=== PATIENT | female | born 1990 | race Caucasian/White ===

== ENCOUNTER 2019-04-12 13:20 | Inpatient (IN) | payer OTHER ==
--- NOTE | 2019-04-12 13:38 | PDOC ---
History of Present Illness <Rae Dela Cruz - Last Filed: 04/12/19 14:41> - General History Source: Patient Exam Limitations: No Limitations - History of Present Illness Initial Comments: 04/12/19 15:08 29 yo F w/ a h/o alcoholic pancreatitis, anxiety, comes in c/o an attack of her pancreatitis since this am. She c/o sudden onset of a burning epigastric pain which radiates to the back and is associated with nausea. It feels similar to her pancreatitis episodes. She has had 2 episodes in the past, and was admitted for both: once at [facility], once in [place]. No fever/chills, no vomiting, no diarrhea, no urinary symptoms, no vaginal symptoms. She states that she abused alcohol for more than 10 years, went through detox when she was admitted for her last pancreatitis attack and had been sober for 3 months, until she had a beer last night while out with her friends (which she thinks triggered her attack) 04/12/19 15:14 <MadhuLauren menon - Last Filed: 04/12/19 18:51> - General Chief Complaint: Pain Stated Complaint: PAIN Time Seen by Provider: 04/12/19 13:38 Past History <Rae Dela Cruz - Last Filed: 04/12/19 14:41> - Past Medical History COPD: No GI Disorders: Yes (GB stones) Liver Disease: Yes Other medical history: PANCREATITIS - Suicide/Smoking/Psychosocial Hx Smoking History: Never smoked <Lauren Leung - Last Filed: 04/12/19 18:51> - Past Medical History Allergies/Adverse Reactions: Allergies Allergy/AdvReac Type Severity Reaction Status Date / Time amoxicillin Allergy Verified 04/12/19 13:24 prochlorperazine Allergy Verified 04/12/19 13:24 [From Compazine] Home Medications: Ambulatory Orders Omeprazole Magnesium [Acid Blast Furnace Supervisor] 20 mg PO DAILY 04/12/19 Review of Systems - Review of Systems Able to Perform ROS?: Yes Constitutional: Yes: Malaise. No: Chills, Fever, Night Sweats HEENTM: No: Eye Pain, Recent change in vision, Throat Pain Respiratory: No: Cough, Shortness of Breath Cardiac (ROS): No: Chest Pain, Palpitations, Chest Tightness ABD/GI: Yes: Nausea, Abdominal cramping. No: Diarrhea, Vomiting : No: Dysuria, Hematuria Musculoskeletal: Yes: Back Pain Integumentary: No: Rash Neurological: No: Headache, Numbness, Dizziness Psychiatric: No: Change in Appetite Endocrine: No: Unexplained Weight Loss <Lauren Leung - Last Filed: 04/12/19 18:51> *Physical Exam - Vital Signs Last Vital Signs Temp Pulse Resp BP Pulse Ox 97.7 F 116 H 18 128/88 99 04/12/19 13:21 04/12/19 13:21 04/12/19 13:21 04/12/19 13:21 04/12/19 13:21 <Rae Dela Cruz - Last Filed: 04/12/19 14:41> - Vital Signs Last Vital Signs Temp Pulse Resp BP Pulse Ox 97.7 F 116 H 18 128/88 99 04/12/19 13:21 04/12/19 13:21 04/12/19 13:21 04/12/19 13:21 04/12/19 13:21 - Physical Exam General Appearance: Yes: Nourished, Thin. No: Apparent Distress HEENT: positive: ÓSCAR, Normal ENT Inspection, Normal Voice. negative: Pale Conjunctivae, Scleral Icterus (R), Scleral Icterus (L) Neck: positive: Supple. negative: Decreased range of motion, Tender midline Respiratory/Chest: positive: Lungs Clear, Normal Breath Sounds. negative: Respiratory Distress, Accessory Muscle Use Cardiovascular: positive: Regular Rhythm, Regular Rate Gastrointestinal/Abdominal: positive: Normal Bowel Sounds, Tender (epigastric, RUQ/LUQ tenderness, also mild tenderness in lower abdomen, no tenderness at McBurney's point, Unable to assess lainez's sign due to pain.), Soft, Rebound Musculoskeletal: positive: Normal Inspection. negative: CVA Tenderness, Decreased Range of Motion Extremity: positive: Normal Capillary Refill, Normal Inspection, Normal Range of Motion. negative: Tender, Pedal Edema Integumentary: positive: Normal Color, Dry. negative: Jaundice, Rash Neurologic: positive: Fully Oriented, Alert, Normal Mood/Affect <Lauren Leung - Last Filed: 04/12/19 18:51> ED Treatment Course - LABORATORY CBC & Chemistry Diagram: 04/12/19 13:40 04/12/19 13:40 - ADDITIONAL ORDERS Additional order review: Laboratory Results 04/12/19 04/12/19 13:41 13:40 PT with INR 11.10 INR 0.94 Serum , Qual Negative 04/12/19 13:40 RBC 3.67 MCV 99.9 H MCHC 33.6 RDW 14.7 MPV 7.4 L Neutrophils % 70.5 Lymphocytes % 19.7 Monocytes % 7.6 Eosinophils % 1.2 Basophils % 1.0 - Medications Given in the ED: ED Medications Discontinued Medications Generic Name Dose Route Start Last Admin Trade Name Sasha PRN Reason Stop Dose Admin Ondansetron HCl 4 mg 04/12/19 13:50 04/12/19 14:03 Zofran Injection IVPUSH 04/12/19 13:51 4 mg ONCE ONE Administration Sodium Chloride 1,000 ml 04/12/19 13:50 04/12/19 14:02 Normal Saline - IV 04/12/19 13:51 1,000 ml ONCE ONE Administration <Rae Dela Cruz - Last Filed: 04/12/19 14:41> - LABORATORY CBC & Chemistry Diagram: 04/12/19 13:40 04/12/19 13:40 <Lauren Leung - Last Filed: 04/12/19 18:51> Medical Decision Making - Medical Decision Making 04/12/19 14:12 The patient was seen and evaluated in conjunction with midlevel provider under my direct supervision, ancillary studies were reviewed. I agree with the plan as outlined ANAYELI Leung. HPI, workup/dispo as outlined. VS reviewed, +tachycardia, likely from pain prior h/o pancreatitis, from ETOH drank beer last night labs and lytes remarkable for pancreatitis. IVF, hydration, antiemetics, analgesia, bowel rest ultrasound admit for pancreatitis, medical management 04/12/19 14:41 04/12/19 14:43 <Rae Dela Cruz - Last Filed: 04/12/19 14:41> - Medical Decision Making 04/12/19 14:30 29 yo F w/ a h/o pancreatitis comes in c/o epigastric pain radiating to the back , likely pancreatitis. WIll do a RUQ sono R/O stones, will line and lab, check urine, will give pain meds, IV fluids, NPO. 06/29/19 15:17 Lipase high, will admit for pancreatitis, pt NPO, morphine ordered for pain, IV fluids ordered. Will admit for GI rest, further eval. I spoke to admitting [facility] resident about the admission <Lauren Leung - Last Filed: 04/12/19 18:51> *DC/Admit/Observation/Transfer <Rae Dela Cruz - Last Filed: 04/12/19 14:41> <Lauren Leung - Last Filed: 04/12/19 18:51> Diagnosis at time of Disposition: Pancreatitis Qualifiers: Chronicity: acute Pancreatitis type: alcohol induced Acute pancreatitis complication: unspecified Qualified Code(s): K85.20 - Alcohol induced acute pancreatitis without necrosis or infection - Discharge Dispostion Condition at time of disposition: Stable
[2019-04-12 13:50] LABS: EOS % 1.2 % (0-4.5); HEMATOCRIT 36.7 % (32.4-45.2); HEMOGLOBIN 12.3 GM/dL (10.7-15.3); LYMPH % 19.7 % (8-40); MCH 33.6 pg (25.7-33.7); MCHC 33.6 g/dl (32.0-36.0); MEAN CELL VOLUME 99.9 fl (80-96); MEAN PLT VOLUME 7.4 fl (7.5-11.1); MONO % 7.6 % (3.8-10.2); NEUT % 70.5 % (42.8-82.8); RBC 3.67 M/mm3 (3.60-5.2); RDW 14.7 % (11.6-15.6); WHITE BLOOD COUNT 9.7 K/mm3 (4.0-10.0)
[2019-04-12] MEDS ORDERED: FAMOTIDINE 20 MG/50 ML IVPB 20 MG/50 ML MG IVPB ONE ×2 (13:50→13:52)
[2019-04-12] MEDS ORDERED: SODIUM CHLORIDE 0.9% 500 ML INFUS.BAG IV ONE ×2 (13:50→14:45)
[2019-04-12] MEDS ORDERED: ONDANSETRON 4 MG/2 ML VIAL IVPUSH ONE (13:50)
[2019-04-12] MEDS ORDERED: ACETAMINOPHEN 1000 MG/100 ML VIAL (NON FORMULARY) IVPB ONE (13:50)
[2019-04-12] MEDS ORDERED: ONDANSETRON 4 MG/2 ML VIAL ONE (13:52)
[2019-04-12] MEDS ORDERED: ACETAMINOPHEN INJECTION 100 ML IVPB ONE (13:52)
[2019-04-12 13:58] LABS: PLATELET COUNT 347 K/MM3 (134-434)
[2019-04-12 14:02] LABS: INR 0.94 (0.83-1.09); PROTHROMBIN TIME (PATIENT) 11.1 SEC (9.7-13.0)
[2019-04-12 14:13] LABS: ALBUMIN 4.2 g/dl (3.4-5.0); ALK PHOS 60 U/L (45-117); ANION GAP 8 MMOL/L (8-16); BILIRUBIN,TOTAL 0.3 mg/dL (0.2-1); BLOOD UREA NITROGEN 6.1 mg/dL (7-18); CALCIUM 10.1 mg/dL (8.5-10.1); CHLORIDE 104 mmol/L (98-107); CO2 25 mmol/L (21-32); CREATININE 0.5 mg/dL (0.55-1.3); GLUCOSE,RANDOM 104 mg/dL (74-106); LIPASE 4338 U/L (73-393); POTASSIUM 4.6 mmol/L (3.5-5.1); SGOT/AST 62 U/L (15-37); SGPT/ALT 55 U/L (13-61); SODIUM 137 mmol/L (136-145); TOT PROT 8.2 g/dl (6.4-8.2)
[2019-04-12] MEDS ORDERED: morphine CARPU-JECT 4 MG/1 ML DISP.SYRIN IVPUSH ONE (14:45)
[2019-04-12] MEDS ORDERED: morphine SULFATE 4 MG/ML VIAL ONE (14:49)
--- NOTE | 2019-04-12 15:11 | HP ---
CHIEF COMPLAINT: Abdominal pain PCP:Ari Mariscal HISTORY OF PRESENT ILLNESS: 29y/o F w pmh of ETOH abuse, anxiety, pancreatitis, gastric ulcer, kidney stones presented to the ED w one day hx of abdominal pain started last night. It was very mild 2/10 worsening this am. This am it was 7/10 radiating to the back b/l ass. w nausea and no vomiting. Pt has 2 previous episodes of pancreatitis. Last one 2 mths ago. Pt endorses that she drank 2 beers last pm and a cup of wine two days ago. Pt have a previous hx of ETOH abuse since the age of 14 w a 1L of wiskey daily. She was Rx at [facility] for detox in february. Pt reports light headedness and dizzyness but denies recent cold, sore throat, chest pain, palpitations. She reports buring sensation at the end of urination. ER course was notable for: (1)cbc/cmp, lipase 4300, (2)- NS bolus (3) zofran, morphine Recent Travel: denies PAST MEDICAL HISTORY: as per HPI PAST SURGICAL HISTORY: tonsillectomy Social History: Smokin/2 ppd since 16 y/o. 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 Drugs: marijuana 1-2 X/yr, ecstacy, and mushrooms when teenager Family History: F- candiadis diffuse M- BRCA, DM Brother- lymphoma at 4y/ o. Aunt- Colon [place] Allergies- amoxicillin Allergy (Verified 04/12/19 13:24) Hives prochlorperazine [From Compazine] Allergy (Verified 04/12/19 13:24) Palpitations , itchiness HOME MEDICATIONS: Home Medications Medication Instructions Recorded Omeprazole Magnesium [Acid Engraved Roller Inspector] 20 mg PO DAILY 04/12/19 REVIEW OF SYSTEMS CONSTITUTIONAL: Absent: fever, chills, diaphoresis, generalized weakness, malaise, loss of appetite, weight change HEENT: Absent: rhinorrhea, nasal congestion, throat pain, throat swelling, difficulty swallowing, mouth swelling, ear pain, eye pain, visual changes CARDIOVASCULAR: Absent: chest pain, syncope, palpitations, irregular heart rate, lightheadedness , peripheral edema RESPIRATORY: Absent: cough, shortness of breath, dyspnea with exertion, orthopnea, wheezing, stridor, hemoptysis GASTROINTESTINAL: Absent: abdominal pain, abdominal distension, nausea, vomiting, diarrhea, constipation, melena, hematochezia GENITOURINARY: Absent: dysuria, frequency, urgency, hesitancy, hematuria, flank pain, genital pain MUSCULOSKELETAL: Absent: myalgia, arthralgia, joint swelling, back pain, neck pain SKIN: Absent: rash, itching, pallor HEMATOLOGIC/IMMUNOLOGIC: Absent: easy bleeding, easy bruising, lymphadenopathy, frequent infections ENDOCRINE: Absent: unexplained weight gain, unexplained weight loss, heat intolerance, cold intolerance NEUROLOGIC: Absent: headache, focal weakness or paresthesias, dizziness, unsteady gait, seizure, mental status changes, bladder or bowel incontinence PSYCHIATRIC: Absent: anxiety, depression, suicidal or homicidal ideation, hallucinations. PHYSICAL EXAMINATION Vital Signs - 24 hr 04/12/19 13:21 Temperature 97.7 F Pulse Rate 116 H Respiratory 18 Rate Blood Pressure 128/88 O2 Sat by Pulse 99 Oximetry (%) GENERAL: Awake, alert, and fully oriented, in no acute distress. HEAD: Normal with no signs of trauma. EYES: Pupils equal, round and reactive to light, sclera anicteric, conjunctiva clear. EARS, NOSE, THROAT: Ears normal, nares patent, oropharynx clear without exudates. Moist mucous membranes.lower chin stitches NECK: supple LUNGS: Breath sounds equal, clear to auscultation bilaterally. No wheezes, and no crackles. No accessory muscle use. HEART: sinus tachy , normal S1 and S2 without murmur, rub or gallop. ABDOMEN: Soft, diffuse tenderness , RUQ tenderness , RLL tendernes , epigastric tenderness , mild distension , normoactive bowel sounds, MUSCULOSKELETAL: Normal range of motion at all joints. No bony deformities or tenderness. No CVA tenderness. UPPER EXTREMITIES: 2+ pulses, warm, well-perfused. No cyanosis. No clubbing. No peripheral edema. LOWER EXTREMITIES: 2+ pulses, warm, well-perfused. No calf tenderness. No peripheral edema. NEUROLOGICAL: Cranial nerves II-XII intact. Normal speech. PSYCHIATRIC: Cooperative. Good eye contact. SKIN: Warm, dry, normal turgor, Laboratory Results - last 24 hr 04/12/19 04/12/19 04/12/19 13:40 13:40 13:40 WBC 9.7 RBC 3.67 Hgb 12.3 Hct 36.7 MCV 99.9 H MCH 33.6 MCHC 33.6 RDW 14.7 Plt Count 347 MPV 7.4 L Absolute Neuts (auto) 6.8 Neutrophils % 70.5 Lymphocytes % 19.7 Monocytes % 7.6 Eosinophils % 1.2 Basophils % 1.0 Nucleated RBC % 0 PT with INR 11.10 INR 0.94 Sodium 137 Potassium 4.6 Chloride 104 Carbon Dioxide 25 Anion Gap 8 BUN 6.1 L Creatinine 0.5 L Est GFR (CKD-EPI)AfAm 152.65 Est GFR (CKD-EPI)NonAf 131.71 Random Glucose 104 Calcium 10.1 Total Bilirubin 0.3 AST 62 H ALT 55 Alkaline Phosphatase 60 Total Protein 8.2 Albumin 4.2 Lipase 4338 H Serum , Qual 04/12/19 13:41 WBC RBC Hgb Hct MCV MCH MCHC RDW Plt Count MPV Absolute Neuts (auto) Neutrophils % Lymphocytes % Monocytes % Eosinophils % Basophils % Nucleated RBC % PT with INR INR Sodium Potassium Chloride Carbon Dioxide Anion Gap BUN Creatinine Est GFR (CKD-EPI)AfAm Est GFR (CKD-EPI)NonAf Random Glucose Calcium Total Bilirubin AST ALT Alkaline Phosphatase Total Protein Albumin Lipase Serum , Qual Negative CBC, BMP 04/12/19 13:40 04/12/19 13:40 EKG NSR QTC 447 ASSESSMENT/PLAN: 29y/o F w pmh of ETOH abuse, anxiety, pancreatitis, gastric ulcer, kidney stones presented to the ED w one day hx of abdominal pain started last night. It was very mild 2/10 worsening this am. This am it was 7/10 radiating to the back b/l ass. w nausea and no vomiting, admitted to [facility] for acute pancreatitis . # Acute pancreatitis * epigastric abdominal pain radioate to her back , with levated lipase 4300 , f.u US abdomen * BHCG ordered * NPO except meds * IV fluids RL bolus and Maintinace 200 CC/hr * Zofran for nausea * Morphine 2 mg Q 4hr for pain * lipid panel * alcohol abstinence * PPI 20 Po daily * EKG * UA and urine toxicology # Mild OLAF likley pre renal will repeat lab after hydration # H.O kidney stone * F.U US no hematuria # FEN * RL : 1 L bolus and 200 CC/hr maintinace * E: monitor * NPO # Proph * Dvts : SCDS * GI: PPI 20 po daily # Dispo : M/S # Code status : Full code Visit type - Emergency Visit Emergency Visit: Yes ED Registration Date: 04/12/19 Care time: The patient presented to the Emergency Department on the above date and was hospitalized for further evaluation of their emergent condition. - New Patient This patient is new to me today: Yes Date on this admission: 04/12/19 - Critical Care Critical Care patient: No
[2019-04-12 16:02] LABS: PH,URINE 5.5 (5.0-8.0); URINE APPEARANCE CLEAR; URINE BILIRUBIN NEGATIVE (NEGATIVE); URINE COLOR YELLOW; URINE GLUCOSE (UA) NEGATIVE (NEGATIVE); URINE KETONE NEGATIVE (NEGATIVE); URINE LEUK ESTERASE 1+ (NEGATIVE); URINE NITRITE NEGATIVE (NEGATIVE); URINE PROTEIN NEGATIVE (NEGATIVE); URINE UROBILINOGEN 0.2 mg/dL (0.2-1.0)
[2019-04-12] MEDS ORDERED: LACTATED RINGERS SOLUTION 1,000 ML IV STA (16:17)
[2019-04-12] MEDS ORDERED: ONDANSETRON 4 MG/2 ML VIAL IVPUSH PRN (16:21)
[2019-04-12 16:31] LABS: COCAINE, UR NEGATIVE ng/ml (CUTOFF=300); METHADONE, UR NEGATIVE ng/ml (CUTOFF=300); PHENCYCLIDINE,URINE NEGATIVE ng/ml (CUTOFF=25); URINE BARBITURATES NEGATIVE ng/ml (CUTOFF=200); URINE BENZODIAZEPINES NEGATIVE ng/ml (CUTOFF=200)
[2019-04-12 16:37] LABS: OPIATES, URI POSITIVE ng/ml (CUTOFF=300); URINE AMPHETAMINES POSITIVE ng/ml (CUTOFF=500)
--- NOTE | 2019-04-12 16:52 | PN ---
Teaching Attending Note Name of Resident: Patrick Vegas ATTENDING PHYSICIAN STATEMENT I saw and evaluated the patient. I reviewed the resident's note and discussed the case with the resident. I agree with the resident's findings and plan as documented. SUBJECTIVE: This is a 29 year old woman with a history of PUD, kidney stones, alcohol abuse, pancreatitis who comes to the ED complaining of abdominal pain since last night. She reports that she had 2 beers yesterday and a glass of wine 2 days ago. The pain started in the epigastric area last night. She was able to sleep, but after eating today, it worsened. It radiates to her back and is associated with nausea. She denies fever, hematemesis, melena, rectal bleeding. Her last episode of pancreatitis was ~3 months ago, and she says she was told that it was caused by stress. OBJECTIVE: Vital Signs Period Temp Pulse Resp BP Sys/Keller Pulse Ox Last 24 Hr 97.7 F 89-116 16-18 120-128/78-88 98-99 HEART: S1S2, RRR LUNGS: Clear ABDOMEN: Soft, non-distended, (+) diffuse tenderness, normal BS EXTREMITIES: No edema Laboratory Tests 04/12/19 04/12/19 04/12/19 13:40 13:40 13:40 WBC 9.7 RBC 3.67 Hgb 12.3 Hct 36.7 MCV 99.9 H MCH 33.6 MCHC 33.6 RDW 14.7 Plt Count 347 MPV 7.4 L Absolute Neuts (auto) 6.8 Neutrophils % 70.5 Lymphocytes % 19.7 Monocytes % 7.6 Eosinophils % 1.2 Basophils % 1.0 Nucleated RBC % 0 PT with INR 11.10 INR 0.94 Sodium 137 Potassium 4.6 Chloride 104 Carbon Dioxide 25 Anion Gap 8 BUN 6.1 L Creatinine 0.5 L Est GFR (CKD-EPI)AfAm 152.65 Est GFR (CKD-EPI)NonAf 131.71 Random Glucose 104 Calcium 10.1 Total Bilirubin 0.3 AST 62 H ALT 55 Alkaline Phosphatase 60 Total Protein 8.2 Albumin 4.2 Lipase 4338 H Serum , Qual Urine Color Urine Appearance Urine pH Ur Specific Robbins Urine Protein Urine Glucose (UA) Urine Ketones Urine Blood Urine Nitrite Urine Bilirubin Urine Urobilinogen Ur Leukocyte Esterase Opiates Screen Methadone Screen Barbiturate Screen Phencyclidine Screen Ur Amphetamines Screen MDMA (Ecstasy) Screen Benzodiazepines Screen Cocaine Screen U Marijuana (THC) Screen 04/12/19 04/12/19 04/12/19 13:41 15:00 15:50 WBC RBC Hgb Hct MCV MCH MCHC RDW Plt Count MPV Absolute Neuts (auto) Neutrophils % Lymphocytes % Monocytes % Eosinophils % Basophils % Nucleated RBC % PT with INR INR Sodium Potassium Chloride Carbon Dioxide Anion Gap BUN Creatinine Est GFR (CKD-EPI)AfAm Est GFR (CKD-EPI)NonAf Random Glucose Calcium Total Bilirubin AST ALT Alkaline Phosphatase Total Protein Albumin Lipase Serum , Qual Negative Urine Color Yellow Urine Appearance Clear Urine pH 5.5 Ur Specific Robbins 1.005 L Urine Protein Negative Urine Glucose (UA) Negative Urine Ketones Negative Urine Blood 2+ H Urine Nitrite Negative Urine Bilirubin Negative Urine Urobilinogen 0.2 Ur Leukocyte Esterase 1+ H Opiates Screen Positive A* Methadone Screen Negative Barbiturate Screen Negative Phencyclidine Screen Negative Ur Amphetamines Screen Positive A* MDMA (Ecstasy) Screen Negative Benzodiazepines Screen Negative Cocaine Screen Negative U Marijuana (THC) Screen Negative Home Medications Medication Instructions Recorded Omeprazole Magnesium [Acid Choir Singer] 20 mg PO DAILY 04/12/19 ASSESSMENT AND PLAN: This is a 29 year old woman with a history of PUD, kidney stones, alcohol abuse , pancreatitis who presented to the ED with abdominal pain. 1. Acute pancreatitis, recurrent, likely secondary to alcohol - NPO - IV fluid - Pain control - Zofran as needed for mausea - Check RUQ US, triglycerides - Discussed avoidance of alcohol 2. PUD - Continue Prilosec 3. Alcohol abuse - Patient reports being sober for several months after detox until this week - Urine positive for opiates and amphetamines, but she denies using any drugs other than occasional marijuana - Watch for withdrawal
[2019-04-12] MEDS: MORPHINE SULFATE 2 MG/ML VIAL IVPUSH PRN ×2 (19:19→23:20)
[2019-04-12] MEDS: LACTATED RINGERS SOLUTION 1,000 ML IV SCH (19:19)
[2019-04-12] MEDS ORDERED: KETOROLAC TROMETHAMINE 15 MG/ML VIAL IVPUSH ONE (20:47)
[2019-04-13] MEDS: LACTATED RINGERS SOLUTION 1,000 ML IV SCH ×5 (00:20→22:01)
[2019-04-13] MEDS: MORPHINE SULFATE 2 MG/ML VIAL IVPUSH PRN ×4 (03:40→20:36)
[2019-04-13 08:30] LABS: BASO % 0.9 % (0-2.0); EOS % 3.5 % (0-4.5); HEMATOCRIT 30.1 % (32.4-45.2); HEMOGLOBIN 10.1 GM/dL (10.7-15.3); LYMPH % 35.1 % (8-40); MCH 33.7 pg (25.7-33.7); MCHC 33.5 g/dl (32.0-36.0); MEAN CELL VOLUME 100.8 fl (80-96); MEAN PLT VOLUME 8.1 fl (7.5-11.1); MONO % 9.5 % (3.8-10.2); RBC 2.98 M/mm3 (3.60-5.2); RDW 14.3 % (11.6-15.6); WHITE BLOOD COUNT 4.7 K/mm3 (4.0-10.0)
[2019-04-13 08:43] LABS: ACTIVATED PTT 29.6 SECONDS (25.2-36.5)
[2019-04-13 08:44] LABS: INR 0.97 (0.83-1.09); PROTHROMBIN TIME (PATIENT) 11.5 SEC (9.7-13.0)
[2019-04-13 08:48] LABS: ALBUMIN 2.9 g/dl (3.4-5.0); BILIRUBIN,TOTAL 0.6 mg/dL (0.2-1); CALCIUM 9.1 mg/dL (8.5-10.1); CREATININE 0.4 mg/dL (0.55-1.3); MAGNESIUM 1.8 mg/dL (1.8-2.4); PHOSPHOROUS 4.6 mg/dL (2.5-4.9); TOT PROT 5.7 g/dl (6.4-8.2)
[2019-04-13 09:20] LABS: PLATELET COUNT 244 K/MM3 (134-434)
--- NOTE | 2019-04-13 13:48 | PN ---
Physical Exam: SUBJECTIVE: Patient seen and examined. She says abdominal pain is less severe. She denies nausea and says she feels hungry. She reports having a panic attack last night. OBJECTIVE: Vital Signs Period Temp Pulse Resp BP Sys/Keller Pulse Ox Last 24 Hr 97.8 F-98.6 F 62-95 16-20 112-125/61-78 97-98 GENERAL: The patient is awake, alert, and fully oriented, in no acute distress. LUNGS: Breath sounds equal, clear to auscultation bilaterally, no wheezes, no crackles, no accessory muscle use. HEART: Regular rate and rhythm, S1, S2 without murmur, rub or gallop. ABDOMEN: Soft, (+) mild diffuse tenderness, nondistended, normoactive bowel sounds, no guarding, no rebound, no hepatosplenomegaly, no masses. EXTREMITIES: 2+ pulses, warm, well-perfused, no edema. Laboratory Results - last 24 hr 04/12/19 04/12/19 04/12/19 13:40 13:40 13:40 WBC 9.7 RBC 3.67 Hgb 12.3 Hct 36.7 MCV 99.9 H MCH 33.6 MCHC 33.6 RDW 14.7 Plt Count 347 MPV 7.4 L Absolute Neuts (auto) 6.8 Neutrophils % 70.5 Lymphocytes % 19.7 Monocytes % 7.6 Eosinophils % 1.2 Basophils % 1.0 Nucleated RBC % 0 PT with INR 11.10 INR 0.94 PTT (Actin FS) Sodium 137 Potassium 4.6 Chloride 104 Carbon Dioxide 25 Anion Gap 8 BUN 6.1 L Creatinine 0.5 L Est GFR (CKD-EPI)AfAm 152.65 Est GFR (CKD-EPI)NonAf 131.71 Random Glucose 104 Calcium 10.1 Phosphorus Magnesium Total Bilirubin 0.3 GGT AST 62 H ALT 55 Alkaline Phosphatase 60 Total Protein 8.2 Albumin 4.2 Triglycerides Cholesterol Total LDL Cholesterol HDL Cholesterol Total Amylase Lipase 4338 H Beta HCG, Quant < 1.0 Serum , Qual Urine Color Urine Appearance Urine pH Ur Specific [place] Urine Protein Urine Glucose (UA) Urine Ketones Urine Blood Urine Nitrite Urine Bilirubin Urine Urobilinogen Ur Leukocyte Esterase Opiates Screen Methadone Screen Barbiturate Screen Phencyclidine Screen Ur Amphetamines Screen MDMA (Ecstasy) Screen Benzodiazepines Screen Cocaine Screen U Marijuana (THC) Screen 04/12/19 04/12/19 04/12/19 13:41 15:00 15:50 WBC RBC Hgb Hct MCV MCH MCHC RDW Plt Count MPV Absolute Neuts (auto) Neutrophils % Lymphocytes % Monocytes % Eosinophils % Basophils % Nucleated RBC % PT with INR INR PTT (Actin FS) Sodium Potassium Chloride Carbon Dioxide Anion Gap BUN Creatinine Est GFR (CKD-EPI)AfAm Est GFR (CKD-EPI)NonAf Random Glucose Calcium Phosphorus Magnesium Total Bilirubin GGT AST ALT Alkaline Phosphatase Total Protein Albumin Triglycerides Cholesterol Total LDL Cholesterol HDL Cholesterol Total Amylase Lipase Beta HCG, Quant Serum , Qual Negative Urine Color Yellow Urine Appearance Clear Urine pH 5.5 Ur Specific [place] 1.005 L Urine Protein Negative Urine Glucose (UA) Negative Urine Ketones Negative Urine Blood 2+ H Urine Nitrite Negative Urine Bilirubin Negative Urine Urobilinogen 0.2 Ur Leukocyte Esterase 1+ H Opiates Screen Positive A* Methadone Screen Negative Barbiturate Screen Negative Phencyclidine Screen Negative Ur Amphetamines Screen Positive A* MDMA (Ecstasy) Screen Negative Benzodiazepines Screen Negative Cocaine Screen Negative U Marijuana (THC) Screen Negative 04/13/19 04/13/19 04/13/19 06:30 06:30 06:32 WBC 4.7 RBC 2.98 L Hgb 10.1 L Hct 30.1 L D MCV 100.8 H MCH 33.7 MCHC 33.5 RDW 14.3 Plt Count 244 D MPV 8.1 Absolute Neuts (auto) 2.4 Neutrophils % 51.0 D Lymphocytes % 35.1 D Monocytes % 9.5 Eosinophils % 3.5 D Basophils % 0.9 Nucleated RBC % 0 PT with INR INR PTT (Actin FS) Sodium 141 Potassium 4.0 Chloride 110 H Carbon Dioxide 26 Anion Gap 6 L BUN 5.0 L Creatinine 0.4 L Est GFR (CKD-EPI)AfAm 164.28 Est GFR (CKD-EPI)NonAf 141.74 Random Glucose 84 Calcium 9.1 Phosphorus 4.6 Magnesium 1.8 Total Bilirubin 0.6 GGT 106 H AST 34 ALT 30 Alkaline Phosphatase 40 L Total Protein 5.7 L Albumin 2.9 L Triglycerides 148 Cholesterol 180 Total LDL Cholesterol 120 H HDL Cholesterol 41 Total Amylase 52 Lipase 535 H Beta HCG, Quant Serum , Qual Urine Color Urine Appearance Urine pH Ur Specific [place] Urine Protein Urine Glucose (UA) Urine Ketones Urine Blood Urine Nitrite Urine Bilirubin Urine Urobilinogen Ur Leukocyte Esterase Opiates Screen Methadone Screen Barbiturate Screen Phencyclidine Screen Ur Amphetamines Screen MDMA (Ecstasy) Screen Benzodiazepines Screen Cocaine Screen U Marijuana (THC) Screen 04/13/19 06:32 WBC RBC Hgb Hct MCV MCH MCHC RDW Plt Count MPV Absolute Neuts (auto) Neutrophils % Lymphocytes % Monocytes % Eosinophils % Basophils % Nucleated RBC % PT with INR 11.50 INR 0.97 PTT (Actin FS) 29.6 Sodium Potassium Chloride Carbon Dioxide Anion Gap BUN Creatinine Est GFR (CKD-EPI)AfAm Est GFR (CKD-EPI)NonAf Random Glucose Calcium Phosphorus Magnesium Total Bilirubin GGT AST ALT Alkaline Phosphatase Total Protein Albumin Triglycerides Cholesterol Total LDL Cholesterol HDL Cholesterol Total Amylase Lipase Beta HCG, Quant Serum , Qual Urine Color Urine Appearance Urine pH Ur Specific [place] Urine Protein Urine Glucose (UA) Urine Ketones Urine Blood Urine Nitrite Urine Bilirubin Urine Urobilinogen Ur Leukocyte Esterase Opiates Screen Methadone Screen Barbiturate Screen Phencyclidine Screen Ur Amphetamines Screen MDMA (Ecstasy) Screen Benzodiazepines Screen Cocaine Screen U Marijuana (THC) Screen Active Medications Generic Name Dose Route Start Last Admin Trade Name Freq PRN Reason Stop Dose Admin Lactated Ringer's 1,000 mls @ 200 mls/hr 04/12/19 16:30 04/13/19 11:31 Lactated Ringers Solution IV 200 mls/hr ASDIR ELIAS Administration Morphine Sulfate 2 mg 04/12/19 16:17 04/13/19 09:59 Morphine Sulfate IVPUSH 2 mg Q4H PRN Administration PAIN LEVEL 6-10 Ondansetron HCl 4 mg 04/12/19 16:21 Zofran Injection IVPUSH Q6H PRN NAUSEA ASSESSMENT/PLAN: This is a 29 year old woman with a history of PUD, kidney stones, alcohol abuse , pancreatitis who presented to the ED with abdominal pain. 1. Acute pancreatitis, recurrent, likely secondary to alcohol - Start clear liquids - Continue IV fluid - Morphine as needed for pain - Zofran as needed for nausea - RUQ US shows slightly enlarged liver with fatty infiltration, mildly decreased echogenicity of pancreas - Triglycerides normal - Check IgG4 - Discussed avoidance of alcohol 2. PUD - Continue Prilosec 3. Alcohol abuse - Patient reports being sober for several months after detox until this week - Urine positive for opiates and amphetamines, but she denies using any drugs other than occasional marijuana - No evidence of withdrawal 4. Anxiety disorder - Patient says she takes Xanax 0.5 mg as needed - confirmed she filled 30 tabs in 10/2018 and 02/2019 5. Anemia, macrocytic - Likely secondary to alcohol - Check B12, folate Visit type - Emergency Visit Emergency Visit: Yes ED Registration Date: 04/12/19 Care time: The patient presented to the Emergency Department on the above date and was hospitalized for further evaluation of their emergent condition. - New Patient This patient is new to me today: No - Critical Care Critical Care patient: No - Discharge Referral Referred to [facility] Med [facility] No
[2019-04-13] MEDS: ALPRAZolam 0.25 MG TABLET PO PRN (16:41)
[2019-04-13] MEDS: PANTOPRAZOLE 20 MG TABLET (FP) PO SCH (20:42)
--- NOTE | 2019-04-14 00:24 | EKG ---
Test Reason : Blood Pressure : / mmHG Vent. Rate : 090 BPM Atrial Rate : 090 BPM P-R Int : 138 ms QRS Dur : 068 ms QT Int : 366 ms P-R-T Axes : 049 064 029 degrees QTc Int : 447 ms NORMAL SINUS RHYTHM NORMAL ECG NO PREVIOUS ECGS AVAILABLE Confirmed by MD Ann, Flaco ([id number]) on 04/14/2019 12:23:47 AM Referred By: Confirmed By:Flaco Juarez MD
[2019-04-14] MEDS: LACTATED RINGERS SOLUTION 1,000 ML IV SCH ×2 (02:46→14:15)
[2019-04-14] MEDS: MORPHINE SULFATE 2 MG/ML VIAL IVPUSH PRN (02:47)
[2019-04-14 07:21] LABS: BASO % 0.8 % (0-2.0); EOS % 3.9 % (0-4.5); HEMATOCRIT 33.2 % (32.4-45.2); HEMOGLOBIN 11.2 GM/dL (10.7-15.3); LYMPH % 34.6 % (8-40); MCHC 33.7 g/dl (32.0-36.0); MEAN CELL VOLUME 100.8 fl (80-96); MONO % 7.1 % (3.8-10.2); NEUT % 53.6 % (42.8-82.8); PLATELET COUNT 289 K/MM3 (134-434); RBC 3.29 M/mm3 (3.60-5.2); RDW 14.4 % (11.6-15.6); WHITE BLOOD COUNT 4.4 K/mm3 (4.0-10.0)
[2019-04-14 08:41] LABS: ALBUMIN 3.3 g/dl (3.4-5.0); BILIRUBIN,TOTAL 0.6 mg/dL (0.2-1); BLOOD UREA NITROGEN 3.1 mg/dL (7-18); CALCIUM 9.5 mg/dL (8.5-10.1); CREATININE 0.5 mg/dL (0.55-1.3); POTASSIUM 3.8 mmol/L (3.5-5.1); TOT PROT 6.7 g/dl (6.4-8.2)
[2019-04-14] MEDS: PANTOPRAZOLE 20 MG TABLET (FP) PO SCH (10:01)
[2019-04-14] MEDS: ALPRAZolam 0.25 MG TABLET PO PRN (10:05)
[2019-04-14] MEDS: oxyCODONE HCL 5 MG TABLET PO PRN ×2 (14:13→20:14)
[2019-04-14 15:08] VITALS: BMI 17.6
--- NOTE | 2019-04-14 15:46 | PN ---
Addendum entered and electronically signed by Frank Vega, RESIDENT 04/14/19 18:49: Prophylaxis: DVT: Sequential compression devices GI: Protonix 20 mg PO daily Original Note: Physical Exam: SUBJECTIVE: This is a 29 y/o F w/ a PMH of ETOH abuse, anxiety, pancreatitis, gastric ulcer , kidney stones, presented to the ED w/ one day of abd pain that started the night before. It was very mild at a 2/10 in the AM and worsened to a 7/10 upon presentation. Radiated to the back b/l and associated w nausea but no vomiting. Pt has 2 prior episodes of pancreatitis one in february 2 mths ago. Pt endorsed having 2 beers (heineken and blue blanchard) an a cup of wine 2 days ago. Pt has been drinking since the age of 14 and that included 1L of wiskey daily. She was treated at a [facility] for detox rehab in February. Overnight events: 2 mg morphine this AM given for 5/10 dull pain in epigastric region. Pt tolerating clears and ate jello at 5 pm. No BM's noted yet. VS stable. Dysuria resolved. Home Meds: Omeprazole 20 mg PO daily OBJECTIVE: Vital Signs Period Temp Pulse Resp BP Sys/Keller Pulse Ox Last 24 Hr 97.8 F-99.2 F 57-81 18-18 114-135/75-89 98 GENERAL: The patient is awake, alert, and fully oriented, in no acute distress. HEAD: Stitches on chin appreciated EYES: sclera anicteric, conjunctiva clear. No ptosis. NECK: supple. LUNGS: Breath sounds equal, clear to auscultation bilaterally, no wheezes, no crackles, no accessory muscle use. HEART: Regular rate and rhythm, S1, S2 without any murmurs, rubs or gallops. ABDOMEN: 5/10 mid epigastric pain no longer radiating to the back, abdomen slightly distended, hypoactive bowel sounds appreciated, negative mcburneys sign , rovsings sign, and chase turners/cullens sign. EXTREMITIES: 2+ pulses to dorsalis pedis, warm and well-perfused, no edema appreciated. SKIN: Warm, dry, no lesions noted CBC, BMP 04/14/19 06:30 04/14/19 06:30 Active Medications Current Medications Alprazolam (Xanax -) 0.5 mg PO Q8H PRN PRN Reason: ANXIETY Last Admin: 04/14/19 10:05 Dose: 0.5 mg Lactated Ringer's (Lactated Ringers Solution) 1,000 mls @ 100 mls/hr IV ASDIR [facility] Last Admin: 04/14/19 14:15 Dose: 100 mls/hr Ondansetron HCl (Zofran Injection) 4 mg IVPUSH Q6H PRN PRN Reason: NAUSEA Oxycodone HCl (Roxicodone -) 5 mg PO Q6H PRN PRN Reason: PAIN LEVEL 6-10 Last Admin: 04/14/19 14:13 Dose: 5 mg Pantoprazole Sodium (Protonix -) 20 mg PO DAILY [facility] Last Admin: 04/14/19 10:01 Dose: 20 mg Images: Abdominal Xray done report not yet back but I did speak to the radiologist downstairs and he said the colon does not show any signs of obstruction although if fluid is filled within the colon that could lead to an obstruction but unable to determine that on an xray so if index of suspicion is still high will order US or CT abdomen. Furthermore a ? pelvic mass was appreciated and an US is being ordered to find out what that is. ASSESSMENT/PLAN: This is a 29 y/o F w PMH of PUD, kidney stones, ETOH abuse, pancreatitis who presented to the ED w/ one day of abdominal pain. # Acute pancreatitis secondary to ETOH abuse. - started clear liquids and will continue that. Pt tolerated the jello she ate well. Plan is to start soft foods at breakfast in AM. - continue IV fluids Lactated ringers. - Morphine was switched to PO oxycodone for pain, zofran for nausea. - Triglycerides are NL r/o that as a possible cause for pancreatitis - Awaiting results on IgG4 for autoimmune pancreatitis. - Discussed avoidance of ETOH with patient. - Abdominal US was ordered to assess ? pelvic mass # PUD - continue omeprazole 20 PO daily as outpatient. # ETOH abuse - Pt reported being sober for mths after detox until this wk. - UA + for opiates, amphetamines but denies any drug use other than marijuana 2X /yr. - No evidence of withdrawal # Anxiety Xanax 0.5 mg but pt endorses that she only takes 1/2 a pill at a time. She filled 30 tabs on 11/02 and 03/02. #Megaloblastic anemia - B12 and folate levels are normal and thus no further management is necessary especially considering the lack of neurological deficits associated with it or any hypersegmented neutrophils on peripheral smear. #FEN 1L at 100 mL on clear liquid diet monitor electrolytes Dispo- plan to d/c once the workup is done with the ? pelvic mass and the pain resolves along with tolerance of food. Visit type - Emergency Visit Emergency Visit: Yes ED Registration Date: 04/12/19 Care time: The patient presented to the Emergency Department on the above date and was hospitalized for further evaluation of their emergent condition. - New Patient This patient is new to me today: Yes Date on this admission: 04/14/19 - Critical Care Critical Care patient: No - Discharge Referral Referred to [facility] Med P.C.: Yes
--- NOTE | 2019-04-14 18:45 | PN ---
Teaching Attending Note Name of Resident: aMme Booth ATTENDING PHYSICIAN STATEMENT I saw and evaluated the patient. I reviewed the resident's note and discussed the case with the resident. I agree with the resident's findings and plan as documented. SUBJECTIVE: no fever or tchills. tolerated liquid diet. still has abd pain. OBJECTIVE: NAD CV : RRR lungs: CTAB abd: sfot, TTP in epigastric area and LLQ . hyperactive BS Ext : no edema or erythema ASSESSMENT AND PLAN: 29 y/o lady with h/p PUD, kidney stones, alcohol abuse, pancreatitis who presented with abd painand was found to have acute pancreatitis 1- Acute pancreatitis , likely due to alcohol use - cont liquid diet - possible regular diet tomorrow - due to hyperactive BS , KUB was obtained. US of abdomen obtained after d/w radiologist - cont IVF , decrease rate 2- ETOH abuse: no signs of withdrawal 3- anxiety : cxont xanax 4- macrocytosis : B12 /folate NL Ambulatory
[2019-04-15] MEDS: ALPRAZolam 0.25 MG TABLET PO PRN (01:39)
[2019-04-15] MEDS: LACTATED RINGERS SOLUTION 1,000 ML IV SCH (01:57)
[2019-04-15] MEDS: oxyCODONE HCL 5 MG TABLET PO PRN (08:25)
[2019-04-15 08:32] LABS: BASO % 0.6 % (0-2.0); EOS % 4.7 % (0-4.5); HEMATOCRIT 32.2 % (32.4-45.2); HEMOGLOBIN 10.9 GM/dL (10.7-15.3); LYMPH % 26.4 % (8-40); MCH 33.8 pg (25.7-33.7); MCHC 33.9 g/dl (32.0-36.0); MEAN CELL VOLUME 99.9 fl (80-96); MEAN PLT VOLUME 7.9 fl (7.5-11.1); MONO % 8.7 % (3.8-10.2); NEUT % 59.6 % (42.8-82.8); PLATELET COUNT 253 K/MM3 (134-434); RBC 3.22 M/mm3 (3.60-5.2); RDW 14.4 % (11.6-15.6); WHITE BLOOD COUNT 4.2 K/mm3 (4.0-10.0)
[2019-04-15 08:53] LABS: ALBUMIN 3.2 g/dl (3.4-5.0); BILIRUBIN,TOTAL 0.6 mg/dL (0.2-1); CALCIUM 9.3 mg/dL (8.5-10.1); CREATININE 0.5 mg/dL (0.55-1.3); POTASSIUM 3.8 mmol/L (3.5-5.1); TOT PROT 6.4 g/dl (6.4-8.2)
[2019-04-15 09:24] LABS: BLOOD UREA NITROGEN 2.5 mg/dL (7-18)
[2019-04-15] MEDS: PANTOPRAZOLE 20 MG TABLET (FP) PO SCH (09:58)
[2019-04-15 11:17] VITALS: BP 137/92; PULSE 58; TEMP 98.8
--- NOTE | 2019-04-15 13:57 | PN ---
Teaching Attending Note Name of Resident: Mame Booth ATTENDING PHYSICIAN STATEMENT I saw and evaluated the patient. I reviewed the resident's note and discussed the case with the resident. I agree with the resident's findings and plan as documented. SUBJECTIVE: No fever or chills, no abd pain , tolerated food OBJECTIVE: NAD CV : RRR lungs: CTAB abd:soft, TTP in LLQ( minimal ) , with no rebound tenderness or guarding , ND , NL BS . Ext : no edema or erythema ASSESSMENT AND PLAN: 29 y/o lady with h/p PUD, kidney stones, alcohol abuse, pancreatitis who presented with abd painand was found to have acute pancreatitis 1- Acute pancreatitis ,improved - tolerated regular low fat diet - dc IVF - f/u with GI - igG 4 level still pending 2- ETOH abuse: no signs of withdrawal . counseled 3- anxiety : colby powell dispo : dc home today
--- NOTE | 2019-04-15 14:14 | DS ---
Physical Exam: SUBJECTIVE: Patient seen and examined this AM no acute events over night and Pt is feeling better tolerating PO diet well, had BM and passed flatulence. OBJECTIVE: Vital Signs Period Temp Pulse Resp BP Sys/Keller Pulse Ox Last 24 Hr 98 F-98.8 F 58-81 18-20 114-137/75-92 98-98 PHYSICAL EXAM GENERAL: The patient is awake, alert, and fully oriented, in no acute distress. HEAD: Normal with no signs of trauma. EYES: sclera anicteric, conjunctiva clear. NECK: neck is supple. LUNGS: Breath sounds equal, clear to auscultation bilaterally, no wheezes, no crackles, no accessory muscle use. HEART: Regular rate and rhythm, S1, S2 without murmur, rub or gallop. ABDOMEN: Soft, not as distended, normoactive bowel sounds, no guarding, no rebound, however there is some tenderness on deep palpation of the mid epigartic area, negative cullens sign, or chase turners, and no masses. EXTREMITIES: 2+ pulses, warm, well-perfused, no edema, SCD's on. NEUROLOGICAL: Normal speech, gait not observed. PSYCH: Normal mood, normal affect. SKIN: Warm, dry, normal turgor, no rashes, stitches on chin have been removed by me. LABS Laboratory Results - last 24 hr CBC, BMP 04/15/19 07:45 04/15/19 07:45 Current Medications Alprazolam (Xanax -) 0.5 mg PO Q8H PRN PRN Reason: ANXIETY Last Admin: 04/15/19 01:39 Dose: 0.5 mg Ondansetron HCl (Zofran Injection) 4 mg IVPUSH Q6H PRN PRN Reason: NAUSEA Oxycodone HCl (Roxicodone -) 5 mg PO Q6H PRN PRN Reason: PAIN LEVEL 6-10 Last Admin: 04/15/19 08:25 Dose: 5 mg Pantoprazole Sodium (Protonix -) 20 mg PO DAILY [facility] Last Admin: 04/15/19 09:58 Dose: 20 mg HOSPITAL COURSE: Date of Admission:04/12/19 Pt is a a 29 y/o female with a past medical hx of ETOH abuse, anxiety, and pancreatitis, gastric ulcer, kidney stones admitted for acute pancreatitis. Patient was found to have a lipase of >4000 and 1L bolus of LR was given, fluids continued during her stay. Over time patient tolerated advancing the diet until fully tolerating food. Pt had some distention on exam in the setting of not having a BM so an abdominal Xray was ordered to assess for any obstruction and none was noted, except for a ? pelvic mass. Thus, we ordered a pelvic US and it showed no abnormalities and normal bladder with no adnexal masses or fluid in the cul de sac. Patient has been advanced to soft diet and is tolerating it with a recent BM and passing of flatulence. Patient should report to her GI doctor (Dr. Yu) in regards to preventing any reocurrence as well as to go over her blood work and in specific IgG4 results. Furthermore, patient should follow up with her primary care physician for preventive measures. Bladder US: The uterus and both ovaries appear unremarkable. No gross adnexal mass is identified. No free fluid in the cul de sac which is nonspecific. Adbominal XR: No prior is available for comparison. The bowel gas pattern is nonobstructive, no gross organomegaly or free air are identified. Visualized osseous structures appear intact. Final impression is that it is an unremarkable exam. Date of Discharge: 04/15/19 Minutes to complete discharge: 35 Discharge Summary Reason For Visit: PANCREATITIS Condition: Improved - Instructions Diet, Activity, Other Instructions: You were admitted to the hospital for acute pancreatitis, which means you had inflammation in the pancreas. While you were here we treated you with fluids and managed your pain. The inflammation has resolved and you are able to return home. You should follow up with a well drill operator helper cable tool to review your blood work, you can make an appointment in one week. You need to avoid any alcohol use as well as any illicit drug use which can worsen your inflamed pancreas. Please resume all your home medications as prescribed. Please make an appointment with your primary care physician in one week. Return if you have any abdominal pain, nausea, vomiting, back pain, pain in urination, and or blood in your urine. Pending labs that need to be followed after discharge : IGG4 Referrals: Ari Dyson [Other] (Please follow up with Dr. Chapman your primary care physician. ) Peter Yu DO [Staff Physician] - Disposition: HOME - Home Medications Comprehensive Discharge Medication List: Ambulatory Orders Omeprazole Magnesium [Acid Software Release Engineer] 20 mg PO DAILY 04/12/19 Alprazolam 0.5 mg PO DAILY PRN 04/13/19 This patient is new to me today: Yes Date on this admission: 04/15/19 Emergency Visit: Yes ED Registration Date: 04/12/19 Care time: The patient presented to the Emergency Department on the above date and was hospitalized for further evaluation of their emergent condition. Critical Care patient: No - Discharge Referral Referred to [facility] Med P.C.: Yes Physician Referral: Patrick Yu DO (GI) (to go over her blood work post pancreatitis. IgG4 blood level still pending. )
== END 2019-04-15 15:02 | disposition home or self-care (01) | DRG 282 ==
LOC: JER 13:20 → JERBED 15:07 → J5S 17:26
PROVIDERS: ADMIT Internal Medicine; ATTEND Internal Medicine
DX: K85.20 Alcohol induced acute pancreatitis without necrosis or infection (principal); F10.10 Alcohol abuse, uncomplicated; R19.12 Hyperactive bowel sounds; F41.9 Anxiety disorder, unspecified; D75.89 Other specified diseases of blood and blood-forming organs; D53.1 Other megaloblastic anemias, not elsewhere classified; R63.6 Underweight; Z68.1 Body mass index [BMI] 19.9 or less, adult; N17.9 Acute kidney failure, unspecified
CPT/HCPCS: 36415; 74019-TC-FY; 76705-TC; 76856-TC; 80053; 80061; 80307; 81003; 82150; 82607; 82746; 82787; 82977; 83690; 83721; 83735; 84100; 84702; 84703; 85025; 85610; 85730; 87077; 87086; 93005; 93010; 99284-25; J0131

== ENCOUNTER 2019-07-10 16:52 | Inpatient (IN) | payer OTHER ==
[2019-07-10] MEDS ORDERED: ONDANSETRON 4 MG/2 ML VIAL IVPUSH ONE (17:33)
[2019-07-10] MEDS ORDERED: ACETAMINOPHEN 1000 MG/100 ML VIAL (NON FORMULARY) IVPB ONE (17:33)
[2019-07-10] MEDS ORDERED: FAMOTIDINE 20 MG/50 ML IVPB 20 MG/50 ML MG IVPB ONE ×2 (17:33→17:49)
[2019-07-10] MEDS ORDERED: FOLIC ACID INJECTION - 1 MG, THIAMINE HCL 100 MG, MULTIVIT INJECTION ADULT 10 ML in SOD... IVPB ONE ×2 (17:46→22:30)
[2019-07-10] MEDS ORDERED: ACETAMINOPHEN INJECTION 100 ML IVPB ONE (17:49)
[2019-07-10] MEDS ORDERED: ONDANSETRON 4 MG/2 ML VIAL ONE (17:49)
--- NOTE | 2019-07-10 17:50 | PDOC ---
History of Present Illness - General Chief Complaint: Pain, Acute Stated Complaint: ABD PAIN Time Seen by Provider: 07/10/19 17:12 History Source: Patient Exam Limitations: No Limitations - History of Present Illness Initial Comments: 07/10/19 17:50 Selene Dodge is a 29yF w PMHx pancreatitis, kidney stones presenting w abdominal pain. LUQ, RUQ pain radiating to R flank started 6pm last night w associated nausea, 2 episodes non bloody vomiting, pain w urination, loose stools, palpitations. Started drinking 1 pint/day of vodka for the past 10d ago after roommate . Last drink this morning. Admitted to cocaine use a few days ago. Denies fever, cough, SOB, chest pain, constipation. Denies suicidal ideation Past History - Past Medical History Allergies/Adverse Reactions: Allergies Allergy/AdvReac Type Severity Reaction Status Date / Time amoxicillin Allergy Unknown Difficulty Verified 07/10/19 17:01 Breathing prochlorperazine Allergy Verified 07/10/19 17:01 [From Compazine] melon Allergy Unknown Difficulty Uncoded 07/10/19 17:01 Breathing Home Medications: Ambulatory Orders Omeprazole Magnesium [Acid Ice Cream Scooper] 20 mg PO DAILY 04/12/19 Alprazolam 0.5 mg PO DAILY PRN 04/13/19 COPD: No GI Disorders: Yes (GB stones) Liver Disease: Yes - Psycho Social/Smoking Cessation Hx Smoking History: Unknown if ever smoked Have you smoked in the past 12 months: Yes Number of Cigarettes Smoked Daily: 5 'Breaking Loose' booklet given: 04/12/19 Hx Alcohol Use: Yes Drug/Substance Use Hx: No Substance Use Type: Alcohol Hx Substance Use Treatment: Yes ([facility] outpatient) Review of Systems - Review of Systems Constitutional: No: Chills, Fever HEENTM: No: Eye Pain, Nose Pain, Throat Pain, Mouth Pain Respiratory: No: Cough, Shortness of Breath Cardiac (ROS): Yes: Palpitations. No: Chest Pain, Syncope ABD/GI: Yes: Diarrhea, Nausea, Vomiting. No: Abdominal Distended, Constipated : Yes: Pain. No: Burning, Dysuria, Discharge, Flank Pain, Hematuria Musculoskeletal: No: Back Pain, Joint Pain, Muscle Pain, Muscle Weakness Integumentary: No: Bruising, Flushing, Lesions Neurological: No: Headache, Numbness, Seizure, Tingling, Tremors Psychiatric: Yes: Stressors. No: Anxiety, Depression Endocrine: No: Flushing, Intolerance to Cold, Intolerance to Heat Hematologic/Lymphatic: No: Anemia, Blood Clots, Easy Bleeding *Physical Exam - Vital Signs Last Vital Signs Temp Pulse Resp BP Pulse Ox 97.8 F 100 H 18 121/75 100 07/10/19 17:02 07/10/19 17:02 07/10/19 17:02 07/10/19 17:02 07/10/19 17:02 - Physical Exam General Appearance: Yes: Nourished, Appropriately Dressed, Moderate Distress, Thin HEENT: positive: EOMI, ÓSCAR, Normal Voice, Hearing Grossly Normal. negative: Scleral Icterus (R), Scleral Icterus (L), Nasal Congestion, Rhinorrhea Respiratory/Chest: positive: Lungs Clear, Normal Breath Sounds. negative: Chest Tender, Respiratory Distress Cardiovascular: positive: Regular Rhythm, Regular Rate, S1, S2. negative: Edema , Murmur Gastrointestinal/Abdominal: positive: Normal Bowel Sounds, Tender (moderate tender LUQ, RUQ, R flank), Flat, Soft, Guarding (LUQ, RUQ, R flank). negative: Organomegaly, Rebound, Hernia Musculoskeletal: positive: CVA Tenderness (R) Integumentary: positive: Normal Color. negative: Jaundice Neurologic: positive: Fully Oriented, Alert, Normal Response, Responsive. negative: Normal Mood/Affect (tearful), Sensory Deficit, Confused, Disoriented ED Treatment Course - LABORATORY CBC & Chemistry Diagram: 07/10/19 18:09 07/10/19 18:09 - RADIOLOGY Radiology Studies Ordered: Category Date Time Status ABDOMEN & PELVIS CT W/O CONTR [CT] Stat CT Scan 07/10/19 17:34 Ordered Medical Decision Making - Medical Decision Making 07/10/19 17:57 CBC CMP lipase HCG UA Utox alcohol CT AB EKG 1L LR, zofran for nausea, pepcid, 2 morphine, 25 librium EKG shows NSR, HR 89, QTc 425 WBC 3.3, UA 2+ leuk est, 1+ blood - UTI, cocaine +, not normal lipase 349, elevated AST 213 ALT 203, [address] shows thickened bladder wall concerning for cystitis - given macrobid given amoxicillin allergy, R ovarian cyst 3x2.4cm, fatty liver, no pancreatitis Selene Dodge is a 29yF w PMHx pancreatitis, kidney stones presenting w abdominal pain likely due to alcoholic gastritis. Also has UTI (R CVA tenderness , +UA) and alcohol withdrawal w elevated alcohol levels/LFTs. Does not have pancreatitis (normal lipase, ruled out on CT), ACS (NSR EKG, neg troponin), not . Given 1L LR, zofran for nausea, pepcid, 2 morphine, 25 librium without pain improvement, macrobid for UTI. Called [facility], they do not have any open detox beds. Admitted to med/surg Dr Galvan for severe abdominal pain requiring acute inpatient management, alcohol withdrawal, urinary tract infection, R ovarian cyst Discharge - Discharge Information Problems reviewed: Yes Clinical Impression/Diagnosis: Intractable abdominal pain UTI (urinary tract infection) Qualifiers: Urinary tract infection type: acute cystitis Hematuria presence: without hematuria Qualified Code(s): N30.00 - Acute cystitis without hematuria Alcohol withdrawal Qualifiers: Complication of substance-induced condition: uncomplicated Qualified Code(s): F10.230 - Alcohol dependence with withdrawal, uncomplicated Ovarian cyst Qualifiers: Laterality: right Qualified Code(s): N83.201 - Unspecified ovarian cyst, right side Condition: Improved - Admission Yes - Follow up/Referral - Patient Discharge Instructions - Post Discharge Activity
[2019-07-10] MEDS: LACTATED RINGERS SOLUTION 1,000 ML/1,000 ML INFUS.BAG IV SCH (18:11)
[2019-07-10 18:37] LABS: URINE APPEARANCE CLOUDY; URINE BILIRUBIN NEGATIVE (NEGATIVE); URINE COLOR YELLOW; URINE GLUCOSE (UA) NEGATIVE (NEGATIVE); URINE KETONE NEGATIVE (NEGATIVE); URINE LEUK ESTERASE 2+ (NEGATIVE); URINE NITRITE NEGATIVE (NEGATIVE); URINE PROTEIN NEGATIVE (NEGATIVE); URINE UROBILINOGEN 0.2 mg/dL (0.2-1.0)
[2019-07-10 18:38] LABS: EOS % 1.3 % (0-4.5); HEMATOCRIT 38.3 % (32.4-45.2); HEMOGLOBIN 12.9 GM/dL (10.7-15.3); MCH 34.1 pg (25.7-33.7); MCHC 33.8 g/dl (32.0-36.0); MEAN PLT VOLUME 6.9 fl (7.5-11.1); MONO % 9.8 % (3.8-10.2); NEUT % 50.9 % (42.8-82.8); PLATELET COUNT 182 K/MM3 (134-434); RBC 3.79 M/mm3 (3.60-5.2); RDW 15.2 % (11.6-15.6); WHITE BLOOD COUNT 3.3 K/mm3 (4.0-10.0)
--- NOTE | 2019-07-10 18:44 | PDOC ---
Documentation entered by Ángela Klein SCRIBE, acting as scribe for Carol Chow DO. Carol Chow DO: This documentation has been prepared by the yunior, Ángela Klein SCRIBE, under my direction and personally reviewed by me in its entirety. I confirm that the documentation accurately reflects all work, treatment, procedures, and medical decision making performed by me. Attending Attestation - Resident Resident Name: Kevin,Ariel - ED Attending Attestation I have performed the following: I have examined & evaluated the patient, The case was reviewed & discussed with the resident, I agree w/resident's findings & plan, Exceptions are as noted - HPI HPI: 07/10/19 18:45 The patient is a 29-year-old female with a past medical history significant for pancreatitis and kidney stones who presents to the emergency department with abdominal pain, vomiting, and diarrhea. The patient reports about a week, and a half back, she relapsed after finding out her roommate committed suicide. The patient reports shes been having about half a pint Vodka daily, and today she had 2 beer. The patient reports 2 days ago she tried cocaine and reports smoking marijuana, denies the use of Heroine. The patient presents today with abdominal pain, associated with vomiting, diarrhea, and dysuria. The patient reports the stool is yellow in color. Denies hematochezia and hematemesis. Denies vaginal discharge/bleeding or itching. Denies new sexual partners. Allergies: Amoxicillin and compazine - Physicial Exam PE: 07/10/19 18:33 Constitutional: Awake, alert, oriented. +tearful. labial motion. No acute distress. Head: Normocephalic. Atraumatic Eyes: PERRL. EOMI. Conjunctivae are not pale. ENT: Mucous membranes are moist and intact. Posterior pharynx without exudate or erythema. Uvula midline. Neck: Supple. Full ROM. No lymphadenopathy. Cardiovascular: Regular rate. +tachycardia. S1, S2 regular. Distal pulses are 2+ and symmetric. Pulmonary/Chest: No evidence of respiratory distress. Clear to auscultation bilaterally No wheezing, rales or rhonchi. Abdominal: +epigastric tenderness and bilateral upper quadrant tenderness, not much suprapubic tenderness. Soft and nondistended. No rebound, guarding or rigidity. Back: No CVA tenderness. Musculoskeletal: No lower extremity edema. No cyanosis. No clubbing. Full range of motion in all extremities. Nocalf tenderness. Skin: Skin is warm and dry. No petechiae. No purpura. Neurological: Alert and oriented to person, place, and time. Cranial nerves II -XII are grossly intact. Normal speech. Strength is grossly symmetric. No sensory deficits. Psychiatric: Good eye contact. Normal interaction, affect and behavior. - Medical Decision Making 07/10/19 18:41 I, Dr. Carol Chow, DO, attest that this document has been prepared under my direction and personally reviewed by me in its entirety. I further attest, that it accurately reflects all work, treatment, procedures and medical decision -making performed by me. a/p: 29yo female with hx of etoh abuse, cocaine use 2 days ago, intermittent marijuana use, and hx of pancreatitis sent from [facility] where she was requesting detox for eval of n/v and upper abd pain -pt with dysuria -pt also with acid feeling in back of throat and nausea- pt with epigastric abd pain concerning for pancreatitis vs alcoholic gastritis -will send labs, npo, ivf hydration -last etoh this AM- not tongue fasciculations, no tremors at this time -preg test -uds -will give pain control pending preg test -will monitor and reassess 07/10/19 18:52 lipase 393 07/10/19 20:06 ct without acute pancreatitis elevated etoh +cocaine will treat uti with macrobid pt needs detox call placed to detox 07/10/19 20:10 no acute pathology on ct 07/10/19 20:10 right ovarian cyst stable for dc to back to [facility] 07/10/19 20:20 no beds available at [facility] pt with abd pain, uti, etoh withdrawal and polysubstance abuse will admit to [facility] pending bed availability at [facility] 07/10/19 21:17 resident discussed the case with [facility] who accepts pt to service Heart Score/ECG Review - ECG Intrepretation Comment:: 07/10/19 18:44 sinus at 89, nl axis, nl interval, no acute st/t wave findings
[2019-07-10 18:55] LABS: METHADONE, UR NEGATIVE ng/ml (CUTOFF=300); OPIATES, URI NEGATIVE ng/ml (CUTOFF=300); PHENCYCLIDINE,URINE NEGATIVE ng/ml (CUTOFF=25); URINE AMPHETAMINES NEGATIVE ng/ml (CUTOFF=500); URINE BARBITURATES NEGATIVE ng/ml (CUTOFF=200); URINE BENZODIAZEPINES NEGATIVE ng/ml (CUTOFF=200)
[2019-07-10 18:57] LABS: ALBUMIN 3.9 g/dl (3.4-5.0); ALK PHOS 82 U/L (45-117); ANION GAP 10 MMOL/L (8-16); BILIRUBIN,TOTAL 0.3 mg/dL (0.2-1); BLOOD UREA NITROGEN 5.9 mg/dL (7-18); CALCIUM 8.9 mg/dL (8.5-10.1); CHLORIDE 103 mmol/L (98-107); CO2 26 mmol/L (21-32); CREATININE 0.6 mg/dL (0.55-1.3); GLUCOSE,RANDOM 89 mg/dL (74-106); POTASSIUM 4.1 mmol/L (3.5-5.1); SGOT/AST 213 U/L (15-37); SGPT/ALT 103 U/L (13-61); SODIUM 139 mmol/L (136-145); TOT PROT 7.9 g/dl (6.4-8.2)
[2019-07-10 19:07] LABS: COCAINE, UR POSITIVE ng/ml (CUTOFF=300); URINE RBC 0-4 /hpf (0-4); URINE WBC 15-20 /hpf (0-5)
[2019-07-10 19:08] LABS: HYALINE CASTS 0-2 /lpf (0-8); URINE BACTERIA MODERATE /hpf (NEGATIVE)
[2019-07-10] MEDS ORDERED: morphine CARPU-JECT 2 MG/1 ML DISP.SYRIN IVPUSH ONE (19:17)
[2019-07-10] MEDS ORDERED: MAG HYDROX/AL HYDROX/SIMETH 30 ML UNIT-DOSE CUP PO ONE (20:05)
[2019-07-10] MEDS ORDERED: chlordiazePOXIDE HCL 25 MG CAPSULE PO ONE (20:22)
--- NOTE | 2019-07-10 21:16 | PN ---
Teaching Attending Note Name of Resident: Jodie Quinonez ATTENDING PHYSICIAN STATEMENT I saw and evaluated the patient. I reviewed the resident's note and discussed the case with the resident. I agree with the resident's findings and plan as documented. SUBJECTIVE: Patient is a 29-year old woman with a PMH of Pancreatitis and Kidney stones who presents to the ER with abdominal pain, vomiting, and diarrhea. The patient reports about a week, and a half back, she relapsed after finding out her roommate committed suicide. The patient reports shes been having about half a pint Vodka daily, and today she had 2 beers. The patient reports 2 days ago she tried cocaine and reports smoking marijuana, denies the use of Heroine. The patient presents today with abdominal pain, associated with vomiting, diarrhea, and dysuria. The patient reports the stool is yellow in color. Denies hematochezia and hematemesis. Denies vaginal discharge/bleeding or itching. Denies fever, cough, SOB, chest pain, constipation. Denies suicidal ideation. LMP was 3 weeks ago. Mother had DM, breast and ovarian cancer. OBJECTIVE: Alert Vital Signs Period Temp Pulse Resp BP Sys/Keller Pulse Ox Last 24 Hr 97.8 F 100 18 121/75 100 HEENT: No Jaundice, eye redness or discharge, PERRLA, EOMI. Normocephalic, atraumatic. External ears are normal and hearing is grossly intact. No nasal discharge. Neck: Supple, nontender. No palpable adenopathy or thyromegaly. No JVD Chest: Good effort. Clear to auscultation and percussion. Heart: Regular. No S3, rub or murmur Abdomen: Not distended, soft, upper abdominal tenderness; right CVAT and no HSM. No rebound or guarding. Normal bowel sounds. Ext: Peripheral pulses intact. No leg edema. Skin: Warm and dry. No petechiae, rash or ecchymosis. Neuro: Alert. Oriented x3. Tremulous and anxious. CN 2-12 grossly intact. Sensation grossly intact in all four extremities and DTR are symmetric. Psych: Appropriate mood and affect. Good insight. Current Medications Generic Name Dose Route Start Last Admin Trade Name Freq PRN Reason Stop Dose Admin Lactated Ringer's 1,000 ml in 1,000 mls @ 125 mls/hr 07/10/19 17:45 07/10/19 18:11 Lactated Ringers Solution IV 125 mls/hr ASDIR ELIAS Administration Folic Acid 1 mg/ Thiamine HCl 1,000 mls @ 125 mls/hr 07/10/19 17:46 07/10/19 18:58 100 mg/ Multivitamins/Minerals IVPB 07/11/19 01:45 125 mls/hr 10 ml/ Sodium Chloride ONCE ONE Administration Nitrofurantoin Macrocrystals 100 mg 07/10/19 20:30 Macrodantin - PO ONCE [facility] Home Medications Medication Instructions Recorded Omeprazole Magnesium [Acid Cyber Security Manager] 20 mg PO DAILY 04/12/19 Alprazolam 0.5 mg PO DAILY PRN 04/13/19 Abnormal Lab Results 07/10/19 07/10/19 07/10/19 18:09 18:09 18:09 WBC 3.3 L MCV 101.0 H MCH 34.1 H MPV 6.9 L D BUN 5.9 L AST 213 H ALT 103 H Ur Specific [place] 1.006 L Urine Blood 1+ H Ur Leukocyte Esterase 2+ H Cocaine Screen Alcohol, Quantitative 288 H 07/10/19 18:09 WBC MCV MCH MPV BUN AST ALT Ur Specific [place] Urine Blood Ur Leukocyte Esterase Cocaine Screen Positive A* Alcohol, Quantitative ASSESSMENT AND PLAN: 1. UTI/Abdominal and Chest pain - Will treat UTI with IV rocephin. CT abdomen/ pelvis shows thickened bladder wall and right ovarian cyst. Abdominal pain may signal alcoholic gastritis so will keep NPO and give IV protonix and IV banana bag. EKG is NSR with no significant ST-T wave changes - chest pain is atypical. Will get CXR and troponin and monitor to rule out ACS. Will continue comprehensive care for all of patients comorbid conditions. Trend LFTs. 2. Alcohol withdrawal/Polysubstance abuse - Will continue IV banana bag. Implement [facility] librium alcohol withdrawal protocol and do neurochecks. Implement seizure, fall and aspiration precautions. Treat with thiamine and folic acid and monitor electrolytes (Ca,Mg,K,P). Counseled patient about abstaining from alcohol and illicit drugs. Will consult resource recovery specialist and refer to alcohol detox upon discharge. 3. Tobacco Use Counseled on risks associated with tobacco use. We will provide patient all the necessary assistance to facilitate smoking cessation and prescribe Nicotine patch. 4. DVT prophylaxis - Lovenox 40 mg SQ q 24 hours. 5. Advance directives - Full code
[2019-07-10] MEDS ORDERED: NITROFURANTOIN MACROCRYSTAL 50 MG CAPSULE (FP) ONE (21:57)
[2019-07-10] MEDS ORDERED: MAG HYDROX/AL HYDROX/SIMETH 30 ML UNIT-DOSE CUP ONE (21:58)
[2019-07-10] MEDS ORDERED: MORPHINE SULFATE 2 MG/ML VIAL ONE (21:58)
[2019-07-10] MEDS ORDERED: chlordiazePOXIDE HCL 25 MG CAPSULE ONE (21:58)
[2019-07-10] MEDS: NITROFURANTOIN MACROCRYSTAL 50 MG CAPSULE (FP) PO SCH (22:08)
[2019-07-10] MEDS ORDERED: CEFTRIAXONE 1 GM in DEXTROSE 5%-WATER - 50 ML IVPB SCH (22:31)
--- NOTE | 2019-07-10 22:46 | HP ---
CHIEF COMPLAINT: PCP: Dr. Chapman HISTORY OF PRESENT ILLNESS: 29 y/o/f with PMHx of alcoholic pancreatitis, nephrolithiasis who went to [facility] seeking detox from alcohol sent here for abd pain x1 week. 2 weeks ago patient's roommate killed himself which caused the patient start drinking alcohol again. She has been drinking a fifth of vodka and a few cans of beer daily. She also tried cocaine for the first time 2 days ago, she used the cocaine by inhaling and is not sure how much it was. She was previously sober for the last few months. She went to [facility] to be admitted for alcohol detox but had worsening abdominal pain. The abd pain started 1 week ago, gradually worsening until today. She states the pain is around her epigastrium, 8/10 at its worse, now a 6/10 after receiving medications in the ER. The pain radiates to her right side and to her back, it is intermittent and sharp. The pain is worse with pressure and eating. She has had burning while urinating for the last few days and noted red tinged urine 3 days ago but none since. She has had diarrhea for the last few days as well, no blood in the diarrhea, no recent abx. She vomited 2 times yesterday, no blood in the vomitus. She has a decreased appetite and endorses a mild headache. Patient states that "she does not want to be here and wishes she wasn't alive" because of everything she is having to deal with. She denies any intent to harm herself or anyone else. She also endorses some chest pain which feels like pressure. She denies any SOB, numbness. ER course was notable for: (1) Zofran, Pepcid for nausea (2) CT showed thickened bladder wall concerning for cystitis, UA positive for UTI. Patient given one dose of Macrobid (3) 2mg of Morphine for pain control Recent Travel: PAST MEDICAL HISTORY: Pancreatitis secondary to alcohol use, nephrolithiasis PAST SURGICAL HISTORY: tonsillectomy @ age 8, removal of liver cysts Social History: Patient moved here from [place] about 1 month ago to be with family Smoking: smokes 4 cigarettes daily Alcohol: for the last 2 weeks patient has been drinking a fifth of vodka and a few cans of beer daily, reports being sober for the last few months prior to this episode. 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 Allergies: amoxicillin Allergy (Unknown, Verified 07/10/19 17:01) Difficulty Breathing prochlorperazine [From Compazine] Allergy (Verified 07/10/19 17:01) melon Allergy (Unknown, Uncoded 07/10/19 17:01) Difficulty Breathing HOME MEDICATIONS: Home Medications Medication Instructions Recorded Omeprazole Magnesium [Acid Construction Administrator] 20 mg PO DAILY 04/12/19 Alprazolam 0.5 mg PO DAILY PRN 04/13/19 REVIEW OF SYSTEMS CONSTITUTIONAL: chills, tremors, loss of appetite, Absent: fever, diaphoresis, generalized weakness, malaise, weight change HEENT: Absent: rhinorrhea, nasal congestion, throat pain, throat swelling, difficulty swallowing, mouth swelling, ear pain, eye pain, visual changes CARDIOVASCULAR: chest pain Absent: syncope, palpitations, irregular heart rate RESPIRATORY: Absent: cough, shortness of breath, dyspnea with exertion, orthopnea, wheezing, stridor, hemoptysis GASTROINTESTINAL: abdominal pain, nausea, vomiting, diarrhea Absent: melena, hematochezia GENITOURINARY: dysuria, hematuria Absent: frequency, urgency, hesitancy, genital pain MUSCULOSKELETAL: back pain Absent: myalgia, arthralgia, joint swelling, neck pain SKIN: itching Absent: rash, pallor NEUROLOGIC: headache PSYCHIATRIC: anxiety, agitation Absent: depression, suicidal or homicidal ideation, hallucinations. PHYSICAL EXAMINATION Vital Signs - 24 hr 07/10/19 17:02 Temperature 97.8 F Pulse Rate 100 H Respiratory 18 Rate Blood Pressure 121/75 O2 Sat by Pulse 100 Oximetry (%) GENERAL: Awake, alert, and fully oriented, in mild distress. tearful on questioning HEAD: Normal with no signs of trauma. EYES: Pupils equal, round and reactive to light, extraocular movements intact, sclera anicteric, conjunctiva clear. No lid lag. EARS, NOSE, THROAT: nares patent, oropharynx clear without exudates. dry mucous membranes. NECK: Normal range of motion, supple without lymphadenopathy LUNGS: Breath sounds equal, clear to auscultation bilaterally. No wheezes, and no crackles. No accessory muscle use. HEART: Regular rate and rhythm, normal S1 and S2 without murmur, rub or gallop. ABDOMEN: moderate tenderness to palpation over the epigastrium and LUQ, no guarding, normoactive bowel sounds, not distended. MUSCULOSKELETAL: Right sided CVA tenderness. Normal range of motion at all joints. No bony deformities or tenderness. UPPER EXTREMITIES: 2+ pulses, warm, well-perfused. No cyanosis. No clubbing. No peripheral edema. LOWER EXTREMITIES: 2+ pulses, warm, well-perfused. No calf tenderness. No peripheral edema. NEUROLOGICAL: Cranial nerves II-XII intact. Normal speech. 5/5 strength upper and lower extremities PSYCHIATRIC: Cooperative. Good eye contact. anxious SKIN: Warm, dry, normal turgor, no rashes or lesions noted, normal capillary refill. CIWA was 17 based on nausea, headache, tremors with extension of arms, anxiety, agitation, tactile disturbance of pruritis. no auditory or visual hallucinations. Laboratory Results - last 24 hr 07/10/19 07/10/19 07/10/19 18:09 18:09 18:09 WBC 3.3 L RBC 3.79 Hgb 12.9 Hct 38.3 D MCV 101.0 H MCH 34.1 H MCHC 33.8 RDW 15.2 Plt Count 182 D MPV 6.9 L D Absolute Neuts (auto) 1.7 Neutrophils % 50.9 Lymphocytes % 37.0 D Monocytes % 9.8 Eosinophils % 1.3 Basophils % 1.0 Nucleated RBC % 0 Sodium 139 Potassium 4.1 Chloride 103 Carbon Dioxide 26 Anion Gap 10 BUN 5.9 L Creatinine 0.6 Est GFR (CKD-EPI)AfAm 143.77 Est GFR (CKD-EPI)NonAf 124.04 Random Glucose 89 Calcium 8.9 Total Bilirubin 0.3 AST 213 H ALT 103 H Alkaline Phosphatase 82 Total Protein 7.9 Albumin 3.9 Lipase 349 Serum , Qual Urine Color Urine Appearance Urine pH Ur Specific [place] Urine Protein Urine Glucose (UA) Urine Ketones Urine Blood Urine Nitrite Urine Bilirubin Urine Urobilinogen Ur Leukocyte Esterase Urine WBC (Auto) Urine RBC (Auto) Urine Casts (Auto) U Epithel Cells (Auto) Urine Bacteria (Auto) Opiates Screen Methadone Screen Barbiturate Screen Phencyclidine Screen Ur Amphetamines Screen MDMA (Ecstasy) Screen Benzodiazepines Screen Cocaine Screen U Marijuana (THC) Screen Alcohol, Quantitative 288 H 07/10/19 07/10/19 07/10/19 18:09 18:09 18:09 WBC RBC Hgb Hct MCV MCH MCHC RDW Plt Count MPV Absolute Neuts (auto) Neutrophils % Lymphocytes % Monocytes % Eosinophils % Basophils % Nucleated RBC % Sodium Potassium Chloride Carbon Dioxide Anion Gap BUN Creatinine Est GFR (CKD-EPI)AfAm Est GFR (CKD-EPI)NonAf Random Glucose Calcium Total Bilirubin AST ALT Alkaline Phosphatase Total Protein Albumin Lipase Serum , Qual Negative Urine Color Yellow Urine Appearance Cloudy Urine pH 6.0 Ur Specific [place] 1.006 L Urine Protein Negative Urine Glucose (UA) Negative Urine Ketones Negative Urine Blood 1+ H Urine Nitrite Negative Urine Bilirubin Negative Urine Urobilinogen 0.2 Ur Leukocyte Esterase 2+ H Urine WBC (Auto) 15-20 Urine RBC (Auto) 0-4 Urine Casts (Auto) 0-2 U Epithel Cells (Auto) 5-10 Urine Bacteria (Auto) Moderate Opiates Screen Negative Methadone Screen Negative Barbiturate Screen Negative Phencyclidine Screen Negative Ur Amphetamines Screen Negative MDMA (Ecstasy) Screen Negative Benzodiazepines Screen Negative Cocaine Screen Positive A* U Marijuana (THC) Screen Negative Alcohol, Quantitative ASSESSMENT/PLAN: 29 y/o/f with PMHx of alcoholic pancreatitis, nephrolithiasis who went to [facility] seeking detox from alcohol sent here for abd pain x1 week. 1)Alcoholic gastritis - patient has had abd pain for the last week and has been drinking heavy amounts of alcohol -CT negative for signs of pancreatitis -Patient still nauseous, keep NPO for now, trial clears in the morning if patient is feeling better -Protonix 40mg IV daily 2)Dysuria - patient with dysuria for the last couple of days, noticed red tinged urine 3 days ago -UA positive for 2+ Leuk Esterase, 1+ blood, moderate bacteria -CT shows thickened bladder wall concerning for cystitis -Patient has left sided CVA tenderness, concern for pyelonephritis -Macrobid given in the ER -Patient started on Rocephin 1g 3)Alcohol Withdrawal - patient has been drinking a fifth of Vodka and a few cans of beer daily for the last 2 weeks -Started on Ativan regimen -given 25mg of Librium in the ER -Banana Bag -Fall risk precautions 4)Chest pain - patient endorses some chest pain, pressure like sensation -EKG normal, no acute ST elevations -Trop negative -CXR read pending -repeat trop in the morning 5)FEN -LR @ 125mls/hr 6)Prophylaxis -Lovenox 7)Disposition -Admitted to med/surg Visit type - Emergency Visit Emergency Visit: Yes ED Registration Date: 07/10/19 Care time: The patient presented to the Emergency Department on the above date and was hospitalized for further evaluation of their emergent condition. - New Patient This patient is new to me today: Yes Date on this admission: 07/11/19 - Critical Care Critical Care patient: No ATTENDING PHYSICIAN STATEMENT I saw and evaluated the patient. I reviewed the resident's note and discussed the case with the resident. I agree with the resident's findings and plan as documented. SUBJECTIVE: OBJECTIVE: ASSESSMENT AND PLAN:
[2019-07-11 00:03] LABS: MAGNESIUM 2.3 mg/dL (1.8-2.4); PHOSPHOROUS 3.9 mg/dL (2.5-4.9)
[2019-07-11 01:29] VITALS: BMI 18.3
[2019-07-11] MEDS ORDERED: ACETAMINOPHEN 1000 MG/100 ML VIAL (NON FORMULARY) IVPB ONE (02:06)
[2019-07-11] MEDS ORDERED: ONDANSETRON 4 MG/2 ML VIAL IVPUSH ONE (02:06)
[2019-07-11] MEDS: LORazepam 1 MG TABLET PO SCH ×4 (04:46→23:00)
[2019-07-11] MEDS: LORazepam 1 MG TABLET PO PRN ×3 (07:52→19:02)
[2019-07-11 08:27] LABS: HEMOGLOBIN 11.2 GM/dL (10.7-15.3); MCH 34.7 pg (25.7-33.7); MCHC 34.1 g/dl (32.0-36.0); MEAN CELL VOLUME 101.8 fl (80-96); MEAN PLT VOLUME 7.1 fl (7.5-11.1); PLATELET COUNT 146 K/MM3 (134-434); RBC 3.25 M/mm3 (3.60-5.2); WHITE BLOOD COUNT 4.6 K/mm3 (4.0-10.0)
[2019-07-11 08:54] LABS: ALBUMIN 3.4 g/dl (3.4-5.0); ALK PHOS 73 U/L (45-117); ANION GAP 8 MMOL/L (8-16); BILIRUBIN,TOTAL 0.6 mg/dL (0.2-1); BLOOD UREA NITROGEN 6.9 mg/dL (7-18); CALCIUM 8.1 mg/dL (8.5-10.1); CHLORIDE 104 mmol/L (98-107); CO2 26 mmol/L (21-32); CREATININE 0.7 mg/dL (0.55-1.3); GLUCOSE,RANDOM 68 mg/dL (74-106); MAGNESIUM 1.9 mg/dL (1.8-2.4); PHOSPHOROUS 3.3 mg/dL (2.5-4.9); POTASSIUM 4.4 mmol/L (3.5-5.1); SGOT/AST 162 U/L (15-37); SGPT/ALT 86 U/L (13-61); SODIUM 137 mmol/L (136-145); TOT PROT 6.8 g/dl (6.4-8.2)
[2019-07-11] MEDS: ENOXAPARIN NA (PORCINE) 40 MG/0.4 ML DISP.SYRIN SQ SCH (10:21)
[2019-07-11] MEDS: FOLIC ACID 1 MG TABLET (FP) PO SCH (10:21)
[2019-07-11] MEDS: MULTIVITAMINS (DAILY MVI) TABLET (FP) PO SCH (10:21)
[2019-07-11] MEDS: THIAMINE HCL 100 MG TABLET (FP) PO SCH (10:21)
[2019-07-11] MEDS: LACTATED RINGERS SOLUTION 1,000 ML/1,000 ML INFUS.BAG IV SCH (10:56)
[2019-07-11] MEDS: PANTOPRAZOLE SODIUM 40 MG VIAL IVPUSH SCH (10:57)
--- NOTE | 2019-07-11 14:10 | EKG ---
Test Reason : Blood Pressure : / mmHG Vent. Rate : 089 BPM Atrial Rate : 089 BPM P-R Int : 142 ms QRS Dur : 078 ms QT Int : 350 ms P-R-T Axes : 049 067 039 degrees QTc Int : 425 ms NORMAL SINUS RHYTHM NORMAL ECG WHEN COMPARED WITH ECG OF 12-APR-2019 16:27, NO SIGNIFICANT CHANGE WAS FOUND Confirmed by PATRICK COLES MD ([id number]) on 07/11/2019 2:10:06 PM Referred By: Confirmed By:PATRICK COLES MD
--- NOTE | 2019-07-11 16:27 | PN ---
Teaching Attending Note Name of Resident: Nina Fraser ATTENDING PHYSICIAN STATEMENT I saw and evaluated the patient. I reviewed the resident's note and discussed the case with the resident. I agree with the resident's findings and plan as documented. SUBJECTIVE: Complains of ongoing epigastric pain, R sided flank and inguinal pain, as well as dysuria. No fever/chills. No PV discharge. OBJECTIVE: Afebrile, hemodynamically Stable. Last Vital Signs Temp Pulse Resp BP Pulse Ox 98.5 F 88 18 125/91 99 07/11/19 14:50 07/11/19 14:50 07/11/19 14:50 07/11/19 14:50 07/11/19 09:40 HEENT - Atraumatic, Normocephalic. HEART - S1, S2, RRR LUNGS - clear to auscultation ABDOMEN - R sided abdominal tenderness, R CVA tenderness. Soft. Bowel Sounds normal. EXTREMITIES - no edema, no calf tenderness. Laboratory Results - last 24 hr 07/10/19 07/10/19 07/10/19 18:09 18:09 18:09 WBC 3.3 L RBC 3.79 Hgb 12.9 Hct 38.3 D MCV 101.0 H MCH 34.1 H MCHC 33.8 RDW 15.2 Plt Count 182 D MPV 6.9 L D Absolute Neuts (auto) 1.7 Neutrophils % 50.9 Lymphocytes % 37.0 D Monocytes % 9.8 Eosinophils % 1.3 Basophils % 1.0 Nucleated RBC % 0 Sodium 139 Potassium 4.1 Chloride 103 Carbon Dioxide 26 Anion Gap 10 BUN 5.9 L Creatinine 0.6 Est GFR (CKD-EPI)AfAm 143.77 Est GFR (CKD-EPI)NonAf 124.04 Random Glucose 89 Calcium 8.9 Phosphorus 3.9 Magnesium 2.3 Total Bilirubin 0.3 AST 213 H ALT 103 H Alkaline Phosphatase 82 Troponin I < 0.02 Total Protein 7.9 Albumin 3.9 Lipase 349 Vitamin B12 Serum Folate Serum , Qual Urine Color Urine Appearance Urine pH Ur Specific [place] Urine Protein Urine Glucose (UA) Urine Ketones Urine Blood Urine Nitrite Urine Bilirubin Urine Urobilinogen Ur Leukocyte Esterase Urine WBC (Auto) Urine RBC (Auto) Urine Casts (Auto) U Epithel Cells (Auto) Urine Bacteria (Auto) Opiates Screen Methadone Screen Barbiturate Screen Phencyclidine Screen Ur Amphetamines Screen MDMA (Ecstasy) Screen Benzodiazepines Screen Cocaine Screen U Marijuana (THC) Screen Alcohol, Quantitative 288 H 07/10/19 07/10/19 07/10/19 18:09 18:09 18:09 WBC RBC Hgb Hct MCV MCH MCHC RDW Plt Count MPV Absolute Neuts (auto) Neutrophils % Lymphocytes % Monocytes % Eosinophils % Basophils % Nucleated RBC % Sodium Potassium Chloride Carbon Dioxide Anion Gap BUN Creatinine Est GFR (CKD-EPI)AfAm Est GFR (CKD-EPI)NonAf Random Glucose Calcium Phosphorus Magnesium Total Bilirubin AST ALT Alkaline Phosphatase Troponin I Total Protein Albumin Lipase Vitamin B12 Serum Folate Serum , Qual Negative Urine Color Yellow Urine Appearance Cloudy Urine pH 6.0 Ur Specific [place] 1.006 L Urine Protein Negative Urine Glucose (UA) Negative Urine Ketones Negative Urine Blood 1+ H Urine Nitrite Negative Urine Bilirubin Negative Urine Urobilinogen 0.2 Ur Leukocyte Esterase 2+ H Urine WBC (Auto) 15-20 Urine RBC (Auto) 0-4 Urine Casts (Auto) 0-2 U Epithel Cells (Auto) 5-10 Urine Bacteria (Auto) Moderate Opiates Screen Negative Methadone Screen Negative Barbiturate Screen Negative Phencyclidine Screen Negative Ur Amphetamines Screen Negative MDMA (Ecstasy) Screen Negative Benzodiazepines Screen Negative Cocaine Screen Positive A* U Marijuana (THC) Screen Negative Alcohol, Quantitative 07/11/19 07/11/19 07:00 07:00 WBC 4.6 RBC 3.25 L Hgb 11.2 Hct 33.0 MCV 101.8 H MCH 34.7 H MCHC 34.1 RDW 15.0 Plt Count 146 MPV 7.1 L Absolute Neuts (auto) Neutrophils % Lymphocytes % Monocytes % Eosinophils % Basophils % Nucleated RBC % Sodium 137 Potassium 4.4 Chloride 104 Carbon Dioxide 26 Anion Gap 8 BUN 6.9 L Creatinine 0.7 Est GFR (CKD-EPI)AfAm 136.66 Est GFR (CKD-EPI)NonAf 117.91 Random Glucose 68 L Calcium 8.1 L Phosphorus 3.3 Magnesium 1.9 Total Bilirubin 0.6 AST 162 H ALT 86 H Alkaline Phosphatase 73 Troponin I < 0.02 Total Protein 6.8 Albumin 3.4 Lipase Vitamin B12 413 Serum Folate 56 H Serum , Qual Urine Color Urine Appearance Urine pH Ur Specific [place] Urine Protein Urine Glucose (UA) Urine Ketones Urine Blood Urine Nitrite Urine Bilirubin Urine Urobilinogen Ur Leukocyte Esterase Urine WBC (Auto) Urine RBC (Auto) Urine Casts (Auto) U Epithel Cells (Auto) Urine Bacteria (Auto) Opiates Screen Methadone Screen Barbiturate Screen Phencyclidine Screen Ur Amphetamines Screen MDMA (Ecstasy) Screen Benzodiazepines Screen Cocaine Screen U Marijuana (THC) Screen Alcohol, Quantitative Current Medications Generic Name Dose Route Start Last Admin Trade Name Freq PRN Reason Stop Dose Admin Enoxaparin Sodium 40 mg 07/11/19 10:00 07/11/19 10:21 Lovenox - SQ 40 mg DAILY ELIAS Administration Folic Acid 1 mg 07/11/19 10:00 07/11/19 10:21 Folic Acid - PO 1 mg DAILY ELIAS Administration Lactated Ringer's 1,000 ml in 1,000 mls @ 125 mls/hr 07/10/19 17:45 07/11/19 10:56 Lactated Ringers Solution IV 125 mls/hr ASDIR ELIAS Administration Levofloxacin 750 mg in 150 mls @ 100 mls/hr 07/12/19 06:00 Levaquin 750 Mg Premixed Ivpb - IVPB DAILY@0600 [facility] Protocol Lorazepam 0.5 mg 07/12/19 05:00 Ativan - PO 07/12/19 23:01 Q6H ELIAS Lorazepam 0.5 mg 07/12/19 00:00 Ativan - PO 07/13/19 00:00 Q4H PRN Symptoms of Withdrawal Lorazepam 0.5 mg 07/13/19 05:00 Ativan - PO 07/13/19 05:01 ONCE ONE Lorazepam 1 mg 07/11/19 05:00 07/11/19 10:59 Ativan - PO 07/11/19 23:01 1 mg 0500,1100,1700,2300 ELIAS Administration Lorazepam 1 mg 07/10/19 22:26 07/11/19 14:39 Ativan - PO 07/12/19 00:00 1 mg Q4H PRN Administration Symptoms of Withdrawal Multivitamins/Minerals/Vitamin C 1 tab 07/11/19 10:00 07/11/19 10:21 Tab-A-Vit - PO 1 tab DAILY ELIAS Administration Nitrofurantoin Macrocrystals 100 mg 07/10/19 20:30 07/10/19 22:08 Macrodantin - PO 100 mg ONCE ELIAS Administration Pantoprazole Sodium 40 mg 07/11/19 10:00 07/11/19 10:57 Protonix Iv IVPUSH 40 mg DAILY ELIAS Administration Thiamine HCl 100 mg 07/11/19 10:00 07/11/19 10:21 Vitamin B1 - PO 100 mg DAILY ELIAS Administration Home Medications Medication Instructions Recorded Omeprazole Magnesium [Acid Pouncer Machine] 40 mg PO DAILY 04/12/19 Alprazolam 0.5 mg PO DAILY PRN 04/13/19 Folic Acid 1 mg PO DAILY 07/11/19 Thiamine HCl [Vitamin B1 -] 100 mg PO DAILY 07/11/19 ASSESSMENT AND PLAN: 29 year old female with history of Polysubstance abuse (Alcohol, cocaine), Alcoholic Pancreatitis, Nephrolithiasis, sent to ED from [facility] with abdominal pain, as well as dysuria/hematuria for past 3 days. 1. Acute Alcohol Withdrawal Ativan detox protocol s/p Banana Bag Thiamine, MVI, Folate. IV hydration 2. UTI/Cystitis CT A/P - thickened bladder wall concerning for cystitis. IV Levofloxacin pending Urine Cx result (PCN allergy) 3. R Ovarian Complex Cyst, possibly hemorrhagic - Transvaginal Pelvic US requested and ASSISTANT INVENTORY MANAGER consulted. 4. Gastritis, likely secondary to Alcohol Trial of PPI 5. Chest Pain - possibly related to cocaine use - resolved. No acute changes on ECG. TropI neg x 2. 6. Elevated Transaminases likely sec to Alcoholic Hepatitis - LFTs improving. Discriminant function does not meet threshold for steroid treatment. Fatty Liver on CT A/P. Hepatitis work-up requested. DVT Px - Lovenox SQ
--- NOTE | 2019-07-11 18:34 | PN ---
Physical Exam: SUBJECTIVE: Patient seen and examined OBJECTIVE: Vital Signs Period Temp Pulse Resp BP Sys/Keller Pulse Ox Last 24 Hr 98.0 F-98.5 F 81-90 16-18 109-126/70-91 98-100 GENERAL: The patient is awake, alert, and fully oriented, in no acute distress. HEAD: Normal with no signs of trauma. EYES: PERRL, extraocular movements intact, sclera anicteric, conjunctiva clear. No ptosis. ENT: Ears normal, nares patent, oropharynx clear without exudates, moist mucous membranes. NECK: Trachea midline, full range of motion, supple. LUNGS: Breath sounds equal, clear to auscultation bilaterally, no wheezes, no crackles, no accessory muscle use. HEART: Regular rate and rhythm, S1, S2 without murmur, rub or gallop. ABDOMEN: Soft, nontender, nondistended, normoactive bowel sounds, no guarding, no rebound, no hepatosplenomegaly, no masses. EXTREMITIES: 2+ pulses, warm, well-perfused, no edema. NEUROLOGICAL: Cranial nerves II through XII grossly intact. Normal speech, gait not observed. PSYCH: Normal mood, normal affect. SKIN: Warm, dry, normal turgor, no rashes or lesions noted Laboratory Results - last 24 hr 07/10/19 07/10/19 07/10/19 18:09 18:09 18:09 WBC 3.3 L RBC 3.79 Hgb 12.9 Hct 38.3 D MCV 101.0 H MCH 34.1 H MCHC 33.8 RDW 15.2 Plt Count 182 D MPV 6.9 L D Absolute Neuts (auto) 1.7 Neutrophils % 50.9 Lymphocytes % 37.0 D Monocytes % 9.8 Eosinophils % 1.3 Basophils % 1.0 Nucleated RBC % 0 Sodium 139 Potassium 4.1 Chloride 103 Carbon Dioxide 26 Anion Gap 10 BUN 5.9 L Creatinine 0.6 Est GFR (CKD-EPI)AfAm 143.77 Est GFR (CKD-EPI)NonAf 124.04 Random Glucose 89 Calcium 8.9 Phosphorus 3.9 Magnesium 2.3 Total Bilirubin 0.3 AST 213 H ALT 103 H Alkaline Phosphatase 82 Troponin I < 0.02 Total Protein 7.9 Albumin 3.9 Lipase 349 Vitamin B12 Serum Folate Serum , Qual Urine Color Urine Appearance Urine pH Ur Specific Wilder Urine Protein Urine Glucose (UA) Urine Ketones Urine Blood Urine Nitrite Urine Bilirubin Urine Urobilinogen Ur Leukocyte Esterase Urine WBC (Auto) Urine RBC (Auto) Urine Casts (Auto) U Epithel Cells (Auto) Urine Bacteria (Auto) Opiates Screen Methadone Screen Barbiturate Screen Phencyclidine Screen Ur Amphetamines Screen MDMA (Ecstasy) Screen Benzodiazepines Screen Cocaine Screen U Marijuana (THC) Screen Alcohol, Quantitative 288 H 07/10/19 07/10/19 07/10/19 18:09 18:09 18:09 WBC RBC Hgb Hct MCV MCH MCHC RDW Plt Count MPV Absolute Neuts (auto) Neutrophils % Lymphocytes % Monocytes % Eosinophils % Basophils % Nucleated RBC % Sodium Potassium Chloride Carbon Dioxide Anion Gap BUN Creatinine Est GFR (CKD-EPI)AfAm Est GFR (CKD-EPI)NonAf Random Glucose Calcium Phosphorus Magnesium Total Bilirubin AST ALT Alkaline Phosphatase Troponin I Total Protein Albumin Lipase Vitamin B12 Serum Folate Serum , Qual Negative Urine Color Yellow Urine Appearance Cloudy Urine pH 6.0 Ur Specific Wilder 1.006 L Urine Protein Negative Urine Glucose (UA) Negative Urine Ketones Negative Urine Blood 1+ H Urine Nitrite Negative Urine Bilirubin Negative Urine Urobilinogen 0.2 Ur Leukocyte Esterase 2+ H Urine WBC (Auto) 15-20 Urine RBC (Auto) 0-4 Urine Casts (Auto) 0-2 U Epithel Cells (Auto) 5-10 Urine Bacteria (Auto) Moderate Opiates Screen Negative Methadone Screen Negative Barbiturate Screen Negative Phencyclidine Screen Negative Ur Amphetamines Screen Negative MDMA (Ecstasy) Screen Negative Benzodiazepines Screen Negative Cocaine Screen Positive A* U Marijuana (THC) Screen Negative Alcohol, Quantitative 07/11/19 07/11/19 07:00 07:00 WBC 4.6 RBC 3.25 L Hgb 11.2 Hct 33.0 MCV 101.8 H MCH 34.7 H MCHC 34.1 RDW 15.0 Plt Count 146 MPV 7.1 L Absolute Neuts (auto) Neutrophils % Lymphocytes % Monocytes % Eosinophils % Basophils % Nucleated RBC % Sodium 137 Potassium 4.4 Chloride 104 Carbon Dioxide 26 Anion Gap 8 BUN 6.9 L Creatinine 0.7 Est GFR (CKD-EPI)AfAm 136.66 Est GFR (CKD-EPI)NonAf 117.91 Random Glucose 68 L Calcium 8.1 L Phosphorus 3.3 Magnesium 1.9 Total Bilirubin 0.6 AST 162 H ALT 86 H Alkaline Phosphatase 73 Troponin I < 0.02 Total Protein 6.8 Albumin 3.4 Lipase Vitamin B12 413 Serum Folate 56 H Serum , Qual Urine Color Urine Appearance Urine pH Ur Specific Wilder Urine Protein Urine Glucose (UA) Urine Ketones Urine Blood Urine Nitrite Urine Bilirubin Urine Urobilinogen Ur Leukocyte Esterase Urine WBC (Auto) Urine RBC (Auto) Urine Casts (Auto) U Epithel Cells (Auto) Urine Bacteria (Auto) Opiates Screen Methadone Screen Barbiturate Screen Phencyclidine Screen Ur Amphetamines Screen MDMA (Ecstasy) Screen Benzodiazepines Screen Cocaine Screen U Marijuana (THC) Screen Alcohol, Quantitative Active Medications Generic Name Dose Route Start Last Admin Trade Name Freq PRN Reason Stop Dose Admin Enoxaparin Sodium 40 mg 07/11/19 10:00 07/11/19 10:21 Lovenox - SQ 40 mg DAILY ELIAS Administration Folic Acid 1 mg 07/11/19 10:00 07/11/19 10:21 Folic Acid - PO 1 mg DAILY ELIAS Administration Lactated Ringer's 1,000 ml in 1,000 mls @ 125 mls/hr 07/10/19 17:45 07/11/19 10:56 Lactated Ringers Solution IV 125 mls/hr ASDIR ELIAS Administration Levofloxacin 750 mg in 150 mls @ 100 mls/hr 07/12/19 06:00 Levaquin 750 Mg Premixed Ivpb - IVPB DAILY@0600 [facility] Protocol Lorazepam 0.5 mg 07/12/19 05:00 Ativan - PO 07/12/19 23:01 Q6H ELIAS Lorazepam 0.5 mg 07/12/19 00:00 Ativan - PO 07/13/19 00:00 Q4H PRN Symptoms of Withdrawal Lorazepam 0.5 mg 07/13/19 05:00 Ativan - PO 07/13/19 05:01 ONCE ONE Lorazepam 1 mg 07/11/19 05:00 07/11/19 17:02 Ativan - PO 07/11/19 23:01 1 mg 0500,1100,1700,2300 ELIAS Administration Lorazepam 1 mg 07/10/19 22:26 07/11/19 14:39 Ativan - PO 07/12/19 00:00 1 mg Q4H PRN Administration Symptoms of Withdrawal Multivitamins/Minerals/Vitamin C 1 tab 07/11/19 10:00 07/11/19 10:21 Tab-A-Vit - PO 1 tab DAILY ELIAS Administration Nitrofurantoin Macrocrystals 100 mg 07/10/19 20:30 07/10/19 22:08 Macrodantin - PO 100 mg ONCE ELIAS Administration Pantoprazole Sodium 40 mg 07/11/19 10:00 07/11/19 10:57 Protonix Iv IVPUSH 40 mg DAILY ELIAS Administration Thiamine HCl 100 mg 07/11/19 10:00 07/11/19 10:21 Vitamin B1 - PO 100 mg DAILY ELIAS Administration ASSESSMENT/PLAN: ATTENDING PHYSICIAN STATEMENT I saw and evaluated the patient. I reviewed the resident's note and discussed the case with the resident. I agree with the resident's findings and plan as documented. SUBJECTIVE: OBJECTIVE: ASSESSMENT AND PLAN:
[2019-07-11] MEDS: NITROFURANTOIN MACROCRYSTAL 50 MG CAPSULE (FP) PO SCH (20:00)
--- NOTE | 2019-07-11 22:55 | CON.OBG ---
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 Patient do not have any Brush Clearing Laborer complains or lower abd pain or menstural problem . presently no c/o pain. pt states she is better she wants to leave the hosp History of Present Illness: Pt known alcoholic was sober but after room mate of killing himself, she wanted to forget everything ,she started drinking & cocaine use 2 days prior to hosp. pt was for detox at [address] [place] [address] since she c/o epigastric pain , vomiting few times , loss of appetite , she was set to ER pt c/o dysuria & hematuria also evaluation for pain Ct scan abd was reported , no evidence of fatty liver or pancreatitis, thickened mucosa bladder & rt ovarian cyst 3x 2.4 cm Pelvic US report : ut 7.5 cm & Rt ovarian cyst 2.4x2.4cmx2.8cm suspects hemorrhagic cyst . no free fluid . INDUSTRIAL ENG History :LMP 3 weeks ago MH : Irregular period x 1-2 months x 3 days to 14 days bleeding . pt very vague . 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 No: Ectopic , Endometriosis (pap 2019 ), PID ...LMP Comment: 06/2019 ...: No ...: 1 (ind ab age 17 ) ...Para: 0 Heme/Onc: Yes: Other (declines ) Infectious Disease: Yes: STD's (chlamydia 2017 ) Psych: Yes: Addictions (alcohol ), Anxiety (xanax prn ), Depression, Other (pt dies not see psychiatrist or therapist ) Endocrine: Yes: Other (does not know ) - Past Surgical History Additional Surgical History: Tonsillectomy in child laurent - Alcohol/Substance Use Hx Alcohol Use: Yes History of Substance Use: reports: Cocaine - Smoking History Smoking history: Current some day smoker Have you smoked in the past 12 months: Yes Aproximately how many cigarettes per day: 5 Home Medications - Allergies Allergies/Adverse Reactions: Allergies Allergy/AdvReac Type Severity Reaction Status Date / Time amoxicillin Allergy Unknown Difficulty Verified 07/10/19 17:01 Breathing prochlorperazine Allergy Verified 07/10/19 17:01 [From Compazine] melon Allergy Unknown Difficulty Uncoded 07/10/19 17:01 Breathing - Home Medications Home Medications: Ambulatory Orders Omeprazole Magnesium [Acid Managed Services Consultant] 40 mg PO DAILY 04/12/19 Alprazolam 0.5 mg PO DAILY PRN 04/13/19 Folic Acid 1 mg PO DAILY 07/11/19 Thiamine HCl [Vitamin B1 -] 100 mg PO DAILY 07/11/19 Physical Exam-INDUSTRIAL ENG Vital Signs: Vital Signs Temperature 98.3 F 07/11/19 20:46 Pulse Rate 82 07/11/19 20:46 Respiratory Rate 19 07/11/19 20:46 Blood Pressure 138/83 07/11/19 20:46 O2 Sat by Pulse Oximetry (%) 100 07/11/19 20:44 Selected Entries 07/10/19 17:02 Weight 115 lb Constitutional: Yes: Anxious, Other (fine tremors noted pt appears to be drowsy ) HENT: Yes: WNL Neck: Yes: WNL Cardiovascular: Yes: Other (not examined) Respiratory: Yes: Other (not done) Gastrointestinal: Yes: WNL, Normal Bowel Sounds, Soft. No: Distention, Tenderness, Tenderness, Epigastrium, Tenderness, Rebound, Vomiting ...Rectal Exam: Yes: Deferred Renal/: No: CVA Tenderness - Left, CVA Tenderness - Right, Vaginal Exam: Yes: Normal Cervix: Yes: Normal. No: Bleeding, Cerv Motion Tenderness, Lesion, Polyp Uterus: Yes: Normal, Freely Moveable, Anteverted, Firm. No: Tender Adnexa: Normal: Bilateral, Not Palpable: Bilateral Breast(s): Yes: WNL Extremities: Yes: WNL. No: Calf Tenderness Edema: LLE: Trace, RLE: Trace Integumentary: Yes: WNL, Tattoos ...Motor Strength: WNL Psychiatric: Yes: WNL, Alert, Oriented Labs: CBC, BMP 07/11/19 07:00 07/11/19 07:00 Laboratory Tests 07/10/19 07/10/19 07/10/19 18:09 18:09 18:09 AST 213 H ALT 103 H Troponin I < 0.02 Lipase 349 Serum , Qual Negative Cocaine Screen 07/10/19 07/11/19 18:09 07:00 AST 162 H ALT 86 H Troponin I < 0.02 Lipase Serum , Qual Cocaine Screen Positive A* urine culture pending Problem List - Problems (1) Right ovarian cyst Code(s): N83.201 - UNSPECIFIED OVARIAN CYST, RIGHT SIDE Assessment/Plan 29 yrs , known alcoholic , on cocaine abuse with epigastric pain possible gastritis , Rt ovarian cyst noted on US , suggestive of Functional ovarian cyst , No action reqd ct treatment for UTI, gastritis , alcohol withdrawal Irregular period due to harmonal dysfunction due to altered liver functions ( elevated liver enz ) anovulatory cycles . harmonal contraception will be high risk for her, non harmonal least risk, or depo provera will be at medium risk pt need consult with psychiatrist & detox attending f/u pt can f/u with her Brush Clearing Laborer Md or at , [facility]
[2019-07-12] MEDS ORDERED: LORazepam 0.5 MG TABLET PO PRN
[2019-07-12] MEDS: LACTATED RINGERS SOLUTION 1,000 ML/1,000 ML INFUS.BAG IV SCH (04:58)
[2019-07-12] MEDS: LORazepam 0.5 MG TABLET PO SCH ×2 (04:58→10:54)
[2019-07-12 07:37] VITALS: BP 130/89; PULSE 93; TEMP 98
[2019-07-12 08:41] LABS: BASO % 0.8 % (0-2.0); EOS % 1.4 % (0-4.5); HEMATOCRIT 35.5 % (32.4-45.2); HEMOGLOBIN 12.3 GM/dL (10.7-15.3); LYMPH % 22.5 % (8-40); MCH 35.1 pg (25.7-33.7); MCHC 34.6 g/dl (32.0-36.0); MEAN CELL VOLUME 101.3 fl (80-96); MEAN PLT VOLUME 7.6 fl (7.5-11.1); MONO % 17.7 % (3.8-10.2); NEUT % 57.6 % (42.8-82.8); PLATELET COUNT 152 K/MM3 (134-434); RDW 14.7 % (11.6-15.6); WHITE BLOOD COUNT 2.7 K/mm3 (4.0-10.0)
[2019-07-12 08:57] LABS: ALBUMIN 3.2 g/dl (3.4-5.0); BILIRUBIN,TOTAL 0.6 mg/dL (0.2-1); BLOOD UREA NITROGEN 3.4 mg/dL (7-18); CALCIUM 9.2 mg/dL (8.5-10.1); CREATININE 0.7 mg/dL (0.55-1.3); POTASSIUM 3.9 mmol/L (3.5-5.1)
[2019-07-12] MEDS: THIAMINE HCL 100 MG TABLET (FP) PO SCH (09:37)
[2019-07-12] MEDS: PANTOPRAZOLE SODIUM 40 MG VIAL IVPUSH SCH (09:37)
[2019-07-12] MEDS: ENOXAPARIN NA (PORCINE) 40 MG/0.4 ML DISP.SYRIN SQ SCH ×2 (09:37→09:43)
[2019-07-12] MEDS: FOLIC ACID 1 MG TABLET (FP) PO SCH (09:38)
[2019-07-12] MEDS: MULTIVITAMINS (DAILY MVI) TABLET (FP) PO SCH (09:38)
--- NOTE | 2019-07-12 12:49 | PN ---
Teaching Attending Note Name of Resident: Mame Booth ATTENDING PHYSICIAN STATEMENT I saw and evaluated the patient. I reviewed the resident's note and discussed the case with the resident. I agree with the resident's findings and plan as documented. SUBJECTIVE: Epigastric pain, R sided flank and inguinal pain improving. No fever /chills. No PV discharge. OBJECTIVE: Afebrile, hemodynamically Stable. Last Vital Signs Temp Pulse Resp BP Pulse Ox 98.0 F 93 H 15 130/89 100 07/12/19 07:36 07/12/19 07:36 07/12/19 07:36 07/12/19 07:36 07/12/19 08:05 HEART - S1, S2, RRR LUNGS - clear to auscultation ABDOMEN - R sided abdominal tenderness, R CVA tenderness improved. Soft. Bowel Sounds normal. EXTREMITIES - no edema, no calf tenderness. Laboratory Results - last 24 hr 07/11/19 07/12/19 07/12/19 12:00 07:19 07:19 WBC 2.7 L RBC 3.50 L Hgb 12.3 Hct 35.5 MCV 101.3 H MCH 35.1 H MCHC 34.6 RDW 14.7 Plt Count 152 MPV 7.6 Absolute Neuts (auto) 1.5 Neutrophils % 57.6 Lymphocytes % 22.5 D Monocytes % 17.7 H D Eosinophils % 1.4 Basophils % 0.8 Nucleated RBC % 0 Sodium 140 Potassium 3.9 Chloride 106 Carbon Dioxide 28 Anion Gap 7 L BUN 3.4 L Creatinine 0.7 Est GFR (CKD-EPI)AfAm 136.66 Est GFR (CKD-EPI)NonAf 117.91 Random Glucose 78 Calcium 9.2 Total Bilirubin 0.6 AST 84 H ALT 63 H Alkaline Phosphatase 71 Total Protein 7.0 Albumin 3.2 L Hep A IgM Ab Confirm Negative Hep Bs Antigen Negative Hep B Core IgM Ab Negative Hepatitis C Ab (EIA) 0.2 Current Medications Generic Name Dose Route Start Last Admin Trade Name Freq PRN Reason Stop Dose Admin Enoxaparin Sodium 40 mg 07/11/19 10:00 07/12/19 09:43 Lovenox - SQ Not Given DAILY ELIAS Folic Acid 1 mg 07/11/19 10:00 07/12/19 09:38 Folic Acid - PO 1 mg DAILY ELIAS Administration Lactated Ringer's 1,000 ml in 1,000 mls @ 125 mls/hr 07/10/19 17:45 07/12/19 04:58 Lactated Ringers Solution IV 125 mls/hr ASDIR ELIAS Administration Levofloxacin 750 mg in 150 mls @ 100 mls/hr 07/12/19 06:00 07/12/19 05:01 Levaquin 750 Mg Premixed Ivpb - IVPB 100 mls/hr DAILY@0600 ELIAS Administration Protocol Lorazepam 0.5 mg 07/12/19 05:00 07/12/19 10:54 Ativan - PO 07/12/19 23:01 0.5 mg Q6H ELIAS Administration Lorazepam 0.5 mg 07/12/19 00:00 Ativan - PO 07/13/19 00:00 Q4H PRN Symptoms of Withdrawal Lorazepam 0.5 mg 07/13/19 05:00 Ativan - PO 07/13/19 05:01 ONCE ONE Multivitamins/Minerals/Vitamin C 1 tab 07/11/19 10:00 07/12/19 09:38 Tab-A-Vit - PO 1 tab DAILY ELIAS Administration Nitrofurantoin Macrocrystals 100 mg 07/10/19 20:30 07/11/19 20:00 Macrodantin - PO 100 mg ONCE EILAS Administration Pantoprazole Sodium 40 mg 07/11/19 10:00 07/12/19 09:37 Protonix Iv IVPUSH 40 mg DAILY ELIAS Administration Thiamine HCl 100 mg 07/11/19 10:00 07/12/19 09:37 Vitamin B1 - PO 100 mg DAILY ELIAS Administration Home Medications Medication Instructions Recorded Omeprazole Magnesium [Acid Technical Document Writer] 40 mg PO DAILY 04/12/19 Alprazolam 0.5 mg PO DAILY PRN 04/13/19 Folic Acid 1 mg PO DAILY 07/11/19 Thiamine HCl [Vitamin B1 -] 100 mg PO DAILY 07/11/19 levoFLOXacin [Levaquin] 750 mg PO DAILY #5 tab 07/12/19 ASSESSMENT AND PLAN: 29 year old female with history of Polysubstance abuse (Alcohol, cocaine), Alcoholic Pancreatitis, Nephrolithiasis, sent to ED from [facility] with abdominal pain, as well as dysuria/hematuria for past 3 days. 1. Acute Alcohol Withdrawal Ativan detox protocol s/p Banana Bag Thiamine, MVI, Folate. For transfer to [facility] once bed available. 2. UTI/Cystitis CT A/P - thickened bladder wall concerning for cystitis. Urine Cx - Coag neg Staph Continue Levofloxacin (PCN allergy) pending Urine Cx final ID and Sens 3. R Ovarian Complex Cyst, possibly hemorrhagic - Transvaginal Pelvic US result noted. [facility] evaluated - for out-patient follow up. 4. Gastritis, likely secondary to Alcohol Trial of PPI 5. Chest Pain - possibly related to cocaine use - resolved - no evidence of ACS. No acute changes on ECG. TropI neg x 2. 6. Elevated Transaminases likely sec to Alcoholic Hepatitis - LFTs improving. Discriminant function does not meet threshold for steroid treatment. Fatty Liver on CT A/P. Hepatitis work-up negative DVT Px - Lovenox SQ
--- NOTE | 2019-07-12 15:45 | DS ---
Physical Exam: SUBJECTIVE: Patient [facility] and without complaints. No acute events overnight. OBJECTIVE: Vital Signs Temperature 98.0 F 07/12/19 07:36 Pulse Rate 93 H 07/12/19 07:36 Respiratory Rate 15 07/12/19 07:36 Blood Pressure 130/89 07/12/19 07:36 O2 Sat by Pulse Oximetry (%) 100 07/12/19 08:05 PHYSICAL EXAM GENERAL: The patient is awake, alert, and fully oriented, in no acute distress. HEAD: Normal with no signs of trauma. LUNGS: Breath sounds equal, clear to auscultation bilaterally, no wheezes, no crackles, no accessory muscle use. HEART: Regular rate and rhythm, S1, S2 without murmur, rub or gallop. ABDOMEN: Soft, nontender, nondistended, normoactive bowel sounds, no guarding, no rebound, SKIN: Warm, dry, normal turgor, no rashes or lesions noted. LABS CBC, BMP 07/12/19 07:19 07/12/19 07:19 HOSPITAL COURSE: Date of Admission:07/10/19 Patient is a 29 y/o female with a history of alcoholic pancreatitis, nephrolithiasis, admitted for detox and abdominal pain. Patient had elevated liver enzymes and was detoxed with Ativan. Patient had a transvaginal US suspicious for cyst. Patient evaluated by OBGYN and can follow up as an outpatient to have her cyst monitored. Patient found to have a UTI and treated with abx. Patient requesting to leave, discussed worsening of condition was possible and consequences of withdrawl. Patient A&O x3 and competent. Patient signed AMA. Transvaginal US: prominent cervix with endocervical fluid, complex right ovarian cyst Date of Discharge: 07/12/19 Minutes to complete discharge: 35 Discharge Summary Problems reviewed: Yes Reason For Visit: CYST OF OVARY, INTRACTABLE ABDOMINAL PAIN, ALCOHOL Condition: Improved - Instructions Diet, Activity, Other Instructions: You were admitted to the hospital from [facility]. While you were here we continued your detox medication. [facility]. While you were here you were also evaluated by OBGYN. You have a right ovarian cyst, there is nothing to do for it at this time. Please follow up with OBGYN as an outpatient so that your cyst can be monitored. While you were here we also found that you have an infection in your urine. We treated this with antibiotics. To complete treatment of this infection please take: Levofloxacin 750 mg once a day by mouth for 5 days Please continue your home medications as prescribed. Please make an appointment to follow up with your primary care physician within one week. Return to the emergency Department if you have any nausea, vomiting, chest pain , shortness of breath or worsening symptoms. Referrals: Daphney Gutierrez MD [Staff Physician] - Disposition: AGAINST MEDICAL ADVICE - Home Medications Comprehensive Discharge Medication List: Ambulatory Orders Omeprazole Magnesium [Acid Manager Biostatistics] 40 mg PO DAILY 04/12/19 Alprazolam 0.5 mg PO DAILY PRN 04/13/19 Folic Acid 1 mg PO DAILY 07/11/19 Thiamine HCl [Vitamin B1 -] 100 mg PO DAILY 07/11/19 levoFLOXacin [Levaquin] 750 mg PO DAILY #5 tab 07/12/19 This patient is new to me today: Yes Date on this admission: 07/12/19 Emergency Visit: No Critical Care patient: No - Discharge Referral Referred to [facility] No ATTENDING PHYSICIAN STATEMENT I saw and evaluated the patient. I reviewed the resident's note and discussed the case with the resident. I agree with the resident's findings and plan as documented. SUBJECTIVE: OBJECTIVE: ASSESSMENT AND PLAN:
[2019-07-13] MEDS ORDERED: LORazepam 0.5 MG TABLET PO ONE (05:00)
== END 2019-07-12 13:36 | disposition left against medical advice (07) | DRG 241 ==
LOC: JER 16:52 → JERBED 20:16 → J6S 07-11 00:39
PROVIDERS: ADMIT Internal Medicine
DX: K29.20 Alcoholic gastritis without bleeding (principal); N30.90 Cystitis, unspecified without hematuria; K70.10 Alcoholic hepatitis without ascites; T40.5X1A Poisoning by cocaine, accidental (unintentional), initial encounter; R07.9 Chest pain, unspecified; F14.10 Cocaine abuse, uncomplicated; N83.201 Unspecified ovarian cyst, right side; F10.230 Alcohol dependence with withdrawal, uncomplicated; F17.210 Nicotine dependence, cigarettes, uncomplicated; K76.0 Fatty (change of) liver, not elsewhere classified; Y92.89 Other specified places as the place of occurrence of the external cause
CPT/HCPCS: 36415; 71045-TC-FY; 74177-TC; 76830-TC; 80053; 80074; 80307; 81003; 82607; 82746; 83690; 83735; 84100; 84484; 84703; 85025; 85027; 87086; 87186; 93005; 93010; 99285-25; J0131; J7030

== ENCOUNTER 2025-05-12 19:17 | Emergency (ER) | payer OTHER ==
[2025-05-12 19:59] VITALS: BP 115/84; PULSE 123; RESP 19; BMI 28.1
== END 2025-05-12 21:01 | disposition home or self-care (01) ==
LOC: JER 19:17
DX: F10.90 Alcohol use, unspecified, uncomplicated (principal); W19.XXXA Unspecified fall, initial encounter
CPT/HCPCS: 99283-25